=== PATIENT | male | born 1945 | race Caucasian/White ===

== ENCOUNTER → 2016-10-12 | Outpatient (CLI) | payer OTHER ==
[2015-11-08 15:05] VITALS: BP 199/95
--- NOTE | 2016-10-12 14:14 | CT ---
HISTORY: Syncope, collapse Study: CT head without contrast Comparison: November 08, 2015 Technique: Axial non contrast images with coronal and sagittal reformats. Dose reduction procedures were used with MA/kv adjusted for body size. Findings: The ventricles are normal in size shape and position. Slight decreased attenuation in the periventri cular white matter suggests small vessel vascular disease. Mild age-related cortical atrophy is pres ent. There is no evidence for recent or remote CVA, hemorrhage, mass lesion, or extra-axial fluid co llection. Those sinuses visualized were clear. Postsurgical changes are present in the left periorbi petty and axillary areas where the patient is undergone open reduction internal fixation of facial fra ctures. IMPRESSION: No acute intracranial abnormality Mild age-related cortical atrophy Mild small-vessel disease Reported By:
== END | disposition home or self-care (01) ==
LOC: RAD 13:33
PROVIDERS: ATTEND Internal Medicine
DX: R55 Syncope and collapse (principal); W19.XXXA Unspecified fall, initial encounter; G31.89 Other specified degenerative diseases of nervous system; I73.89 Other specified peripheral vascular diseases
CPT/HCPCS: 70450

== ENCOUNTER 2017-02-03 19:36 | Emergency (ER) | payer OTHER ==
--- NOTE | 2017-02-03 20:05 | CT ---
CT head without contrast Indication: Altered mental status Technique: Helical CT images of the brain were obtained without IV contrast. Reformatted images in th e coronal and sagittal planes were also generated for review. Comparison: 10/12/2016 Findings: There is no intracranial hemorrhage, visible acute infarct, focal or generalized edema, ext ra-axial collection, hydrocephalus or mass. There is stable age-appropriate cerebral atrophy with pro portional compensatory ventricular and sulcal enlargement. Mild periventricular and subcortical white matter microangiopathic disease also appears similar. Prior postsurgical changes of the left maxillo facial bones again noted and unchanged. No acute osseous or soft tissue abnormality is otherwise iden tified. Impression: No acute intracranial abnormality. Stable age-appropriate atrophy and microangiopathic disease. Reported By:
[2017-02-03 20:16] VITALS: BMI 29.2
--- NOTE | 2017-02-03 20:18 | DR.GENAD ---
HPI - Complaint/Symptoms Chief Complaint Doctors Comments: Patient presented to the ED with complaint of not responding (AMS) with presumed strok. He was taken X ray for stat CT Scan. The scan was read as negative. Communication make with Dr Rajan via the Stroke Portal who evaluated patient and he recommended TPA administration and transfer to [facility] ED for a ER to ER acceptance and he was the neurologist accepting patient. PMH - PMH Past Medical History: Anemia, Angina, Arthritis, CHF, Coronary Artery Disease, Depression, Diabetes, GERD, Hypertension, Kidney Stones, [place], Sleep Apnea Past Surgical History: Yes Surgical History: Angioplasty/Stents, CABG/Valve Surgery - Family History Family Medical History: Diabetes Mellitus, Cancer, [place], Sudden Cardiac , Hypertension - Social History Do you use any recreational Drugs:: No ROS - Review of Systems Constitutional: negative: Diaphoresis Eyes: Other (Not responding) ENTM: No Symptoms Reported Respiratoy: No Symptoms Reported Cardiovascular: No Symptoms Reported Gastrointestinal/Abdominal: No Symptoms Reported Genitourinary: No Symptoms Reported Neurological: No Symptoms Reported Musculoskeletal: No Symptoms Reported Integumentary: No Symptoms Reported Hematologic/Lymphatic: No Symptoms Reported Endocrine: No Symptoms Reported Psychiatric: No Symptoms Reported All Other Systems: Reviewed and Negative PE - Vital Signs Vitals: Temperature 97.5 F Pulse Rate 72 Respiratory Rate 20 Blood Pressure [Right Arm] 123/60 Blood Pressure [Left Arm] 137/60 Blood Pressure 175/81 O2 Sat by Pulse Oximetry 97 - General Limitations: Language Barrier, Altered Mental Status General Appearance: Obtunded - Head Head Exam: Normal Inspection, Atraumatic - Eyes Eye exam: Normal Appearance, Other (sluggish ) - ENT ENT Exam: Normal Exam External Ear Exam: Normal External Inspection TM/Canal Exam: Bilateral Normal Nose Exam: Normal Nose Exam Mouth Exam: Normal Inspection, Other (s/p facial surgery ) Throat Exam: Normal Inspection - Neck Neck Exam: Normal Inspection - Chest Chest Inspection: Normal Inspection - Respiratory Respiratory Exam: Normal Lung Sounds Bilat Respiratory Exam: Bilateral Clear to Auscultation - Cardiovascular Cardiovascular Exam: Regular Rate - Abdominal Exam Abdominal Exam: Normal Inspection Abdominal Tenderness: negative: RUQ, RLQ, LUQ, LLQ, Epigastrium, Suprapubic, Diffuse, Mild, Moderate, Severe, Other - Extremities Extremities Exam: Normal Inspection, Full ROM - Back Back Exam: Normal Inspection - Neurologic Neurological Exam: Alert, CN II-XII Intact - Psychiatric Psychiatric Exam: Normal Affect - Skin Skin Exam: Warm, Dry, Intact Course - Consultation Called: 20:30 (Dr Castillo evaluated, suspected CVA, recommended TPA) ROR - Labs Reviewed Result Diagrams: 02/03/17 20:25 02/03/17 20:25 Laboratory: WBC 10.3 X10^3/uL (3.6-10.0) H 02/03/17 20:25 RBC 4.00 X10^6/uL (4.7-6.0) L 02/03/17 20:25 Hgb 11.5 g/dL (13.5-18.0) L 02/03/17 20:25 Hct 34.9 % (42.0-54.0) L 02/03/17 20:25 MCV 87.4 fL (80.0-100.0) 02/03/17 20:25 MCH 28.8 pg (27.0-34.0) 02/03/17 20:25 MCHC 33.0 g/dL (33.0-35.0) 02/03/17 20:25 RDW 17.1 % (11.6-16.5) H 02/03/17 20:25 Plt Count 272 X10^3/uL (150.0-450.0) 02/03/17 20:25 MPV 8.0 fL (7.4-11.0) 02/03/17 20:25 Neut % 45.3 % (42.0-75.0) 02/03/17 20:25 Lymph % 40.1 % (21.0-51.0) 02/03/17 20:25 [place] % 9.9 % (0.0-13.0) 02/03/17 20:25 Eos % 4.0 % (0.9-2.9) H 02/03/17 20:25 Baso % 0.7 % (0.2-1.0) 02/03/17 20:25 Neut # 4.7 x10^3/uL (2.2-4.8) 02/03/17 20:25 Lymph # 4.1 X10^3/uL (1.3-2.9) H 02/03/17 20:25 [place] # 1.0 x10^3/uL (0.3-0.8) H 02/03/17 20:25 Eos # 0.4 x10^3/uL (0.0-0.2) H 02/03/17 20:25 Baso # 0.1 X10^3/uL (0.0-0.1) 02/03/17 20:25 Absolute Nucleated RBC 0.0 /100WBC 02/03/17 20:25 INR Target Range - 02/03/17 20:25 INR 1.04 (0.8-1.3) 02/03/17 20:25 PTT 35.0 SECONDS (22.9-36.5) 02/03/17 20:25 PTT Comment - 02/03/17 20:25 - XRAY XRAY Interpreted by: Radiologist (CT Brain: No acute intracranial abnormality) - Diagnosis Discharge Problem: CVA (cerebral vascular accident) Qualifiers: CVA mechanism: thrombosis Precerebral and cerebral artery: unspecified cerebral artery Qualified Code(s): I63.30 - Cerebral infarction due to thrombosis of unspecified cerebral artery - Discharge Plan Condition: Stable - Follow ups/Referrals Follow ups/Referrals: Trav Cordero [Primary Care Provider] - 3 days - Instructions
[2017-02-03 20:32] LABS: BASOPHILS # (AUTO) 0.1 X10^3/uL (0.0-0.1); BASOPHILS % (AUTO) 0.7 % (0.2-1.0); EOSINOPHILS # (AUTO) 0.4 x10^3/uL (0.0-0.2); HEMATOCRIT 34.9 % (42.0-54.0); HEMOGLOBIN 11.5 g/dL (13.5-18.0); LYMPHOCYTES # (AUTO) 4.1 X10^3/uL (1.3-2.9); LYMPHOCYTES % (AUTO) 40.1 % (21.0-51.0); MEAN CORPUSCULAR HEMOGLOBIN 28.8 pg (27.0-34.0); MEAN CORPUSCULAR VOLUME 87.4 fL (80.0-100.0); MONOCYTES % (AUTO) 9.9 % (0.0-13.0); NEUTROPHILS # (AUTO) 4.7 x10^3/uL (2.2-4.8); NEUTROPHILS % (AUTO) 45.3 % (42.0-75.0); PLATELET COUNT 272 X10^3/uL (150.0-450.0); RED CELL DISTRIBUTION WIDTH 17.1 % (11.6-16.5); WHITE BLOOD COUNT 10.3 X10^3/uL (3.6-10.0)
[2017-02-03 20:48] LABS: CALCIUM 8.6 mg/dL (8.5-10.1); CARBON DIOXIDE 29.3 mmol/L (21-32); CREATININE 1.97 mg/dL (0.70-1.30); TROPONIN I 0.39 ng/mL (0-1.5)
[2017-02-03] MEDS ORDERED: NS IV ONE ×2 (20:51→21:05)
[2017-02-03] MEDS ORDERED: ACTIVASE IV ONE ×2 (20:51→21:05)
[2017-02-03 20:52] LABS: ALBUMIN 3.1 g/dL (3.4-5.0); CKMB % 0.6 % (<4); COR CA(FOR HYPOALB) 9.3 mg/dL (8.5-10.1); CREATINE KINASE MB 1.6 ng/mL (0-4.0); MAGNESIUM 2.4 mg/dL (1.7-2.9); TOTAL PROTEIN 7.9 g/dL (6.4-8.2)
[2017-02-03] MEDS ORDERED: NORMODYNE INJ 20 MG VIAL ONE (21:13)
[2017-02-03] MEDS ORDERED: NORMODYNE INJ 100 MG VIAL IVP ONE (21:19)
[2017-02-03] MEDS ORDERED: NS 1/2 1000 ML IV 1,000 ML IV ONE (21:31)
[2017-02-03] MEDS ORDERED: NS 1/2 1000 ML IV 1,000 ML IV SCH (21:33)
[2017-02-03 21:37] LABS: BILIRUBIN,URINE NEGATIVE (NEGATIVE); BLOOD/HEMOGLOBIN,URINE 1+ (NEGATIVE); GLUCOSE, URINE 4+ (NEGATIVE); KETONES,URINE NEGATIVE (NEGATIVE); LEUKOCYTE ESTERASE ,URINE NEGATIVE (NEGATIVE); NITRITES,URINE NEGATIVE (NEGATIVE); PROTEIN,URINE 1+ (NEGATIVE); UROBILINOGEN,URINE NORMAL (NORMAL)
[2017-02-03 21:46] LABS: AMORPHOUS SEDIMENT,UR 1+ /HPF (NEGATIVE); APPEARANCE,URINE CLEAR (CLEAR); BACTERIA,URINE TRACE /HPF (NEGATIVE); COLOR,URINE PALE YELLOW (YELLOW); RBC,URINE 0-2 /HPF (NEGATIVE); SQUAMOUS EPITHELIAL CELL,UR NEGATIVE /HPF (NEGATIVE)
--- NOTE | 2017-02-03 21:46 | RAD ---
Chest, one view Indication: Altered mental status Comparison: 10/02/2015 Findings: There is stable mild cardiomegaly without congestive failure. Left-sided pacemaker and prio r median sternotomy again noted. No focal consolidation, significant effusion or pneumothorax is iden tified. Postsurgical changes of the distal left clavicle are noted. No acute osseous abnormality is i dentified. Impression: No acute cardiopulmonary abnormality. Reported By:
[2017-02-04 02:00] VITALS: BP 142/77
== END 2017-02-03 21:45 | disposition short-term general hospital (02) ==
LOC: ER 19:47
DX: I63.30 Cerebral infarction due to thrombosis of unspecified cerebral artery (principal); R41.82 Altered mental status, unspecified
CPT/HCPCS: 36415; 51702; 70450; 71010; 80053; 80307; 81001; 82550; 82553; 83735; 84484; 85025; 85610; 85730; 93005; 96365; 96367; 96374; 96375; 99285; A4222; G0434; J2997; J3490

== ENCOUNTER → 2017-03-11 | Day surgery (SDC) | payer OTHER ==
[~2017-03-11] MED LIST: ANCEF 1 GM IV PREMIX* 1 GM/50 ML BAG IV ONE; DIPRIVAN VIAL ONE; LR 1000 ML IV 1,000 ML IV ONE; NS 1000 ML 1,000 ML ONE; NS IRRIGATION 1000 ML 1,000 ML with BACITRACIN VIAL 50,000 UNT IR ONE; VERSED ONE; XYLOCAINE 1 % (PLAIN) ONE
[2017-03-11] MEDS: FLAGYL IV PREMIX 500 MG BAG 500 MG/100 ML BAG IV ONE ×2 (08:30→09:15)
[2017-03-11] MEDS: XYLOCAINE 1 % (PLAIN) ONE ×2 (09:40→09:51)
[2017-03-11 11:00] VITALS: BP 139/76
== END | disposition home or self-care (01) ==
LOC: SURG1 07:38
PROVIDERS: ATTEND Surgery
PROC: 0JBQ0ZZ Excision of Right Foot Subcutaneous Tissue and Fascia, Open Approach (ICD-10-PCS; 2017-03-11)
PROC: 0JBR0ZZ Excision of Left Foot Subcutaneous Tissue and Fascia, Open Approach (ICD-10-PCS; principal; 2017-03-11 08:30)
DX: E11.621 Type 2 diabetes mellitus with foot ulcer (principal); L97.528 Non-pressure chronic ulcer of other part of left foot with other specified severity; L97.518 Non-pressure chronic ulcer of other part of right foot with other specified severity; Z89.422 Acquired absence of other left toe(s); Z89.421 Acquired absence of other right toe(s); B95.7 Other staphylococcus as the cause of diseases classified elsewhere; M79.89 Other specified soft tissue disorders
CPT/HCPCS: 87070; 87075; 87077; 87186; 87205; 99100; A4222; S0030; J0690; J2001; J2250; J3490; J7120

== ENCOUNTER → 2017-04-04 | Day surgery (SDC) | payer OTHER ==
[~2017-04-04] MED LIST changes: -ANCEF 1 GM IV PREMIX* 1 GM/50 ML BAG IV ONE; +BACITRACIN VIAL ONE; +BACTROBAN OINT ONE; -DIPRIVAN VIAL ONE; +FENTANYL INJ 100 mcg ONE; -LR 1000 ML IV 1,000 ML IV ONE; +MARCAINE 0.25% INJ ONE; +NS IRRIGATION 1000 ML 1,000 ML with BACITRACIN VIAL 50,000 UNT IM ONE; -NS IRRIGATION 1000 ML 1,000 ML with BACITRACIN VIAL 50,000 UNT IR ONE; -VERSED ONE; -XYLOCAINE 1 % (PLAIN) ONE
[2017-04-04 10:43] VITALS: BP 108/80
== END | disposition home or self-care (01) ==
LOC: SURG1 08:43
PROVIDERS: ATTEND Surgery
PROC: 0JBQ0ZZ Excision of Right Foot Subcutaneous Tissue and Fascia, Open Approach (ICD-10-PCS; 2017-04-04)
PROC: 0JBQ0ZZ Excision of Right Foot Subcutaneous Tissue and Fascia, Open Approach (ICD-10-PCS; principal; 2017-04-04 09:00)
DX: E11.621 Type 2 diabetes mellitus with foot ulcer (principal); L97.516 Non-pressure chronic ulcer of other part of right foot with bone involvement without evidence of necrosis; L89.619 Pressure ulcer of right heel, unspecified stage; B95.62 Methicillin resistant Staphylococcus aureus infection as the cause of diseases classified elsewhere
CPT/HCPCS: 87070; 87075; 87077; 87186; 87205; 99100; A4222; S0020; J3010

== ENCOUNTER 2017-04-08 14:55 | Inpatient (IN) | payer OTHER ==
--- NOTE | 2017-04-08 15:28 | DR.CP ---
HPI - Time Seen Time seen: 15:20 - PCP Primary Care Physician: FREDDY MARINO - Complaint Chief Complaint Doctor Comments: Patient presented to the ED with family members with complaint of respiratory distress with increased in oxygen requirement. There is concern that patient might be having another CVA. Chief Complaint:: PT FROM [facility] WHERE STAFF STATES THAT HE C/O CHEST PAIN, AND PT HAS HAD STROKES PT IS UNABLE TO ARTICULATE ANY PAIN PT PLACED ON 3 CM ,,, SR RATE OF 70'S NOTED PT HAS 02 ON AT 2 LPM , PT IS PALE SINCE YESTERDAY PER FAMILY. - Source History Provided: Patient - Mode of Arrival Mode of Arrival: Stretcher - Timing Onset of Chief Complaint: 04/08/17 PMH - PMH Past Medical History: Yes Past Medical History: Anemia, Angina, Arthritis, CHF, Coronary Artery Disease, Depression, Diabetes, GERD, Hypertension, Kidney Stones, [place], Sleep Apnea Past Surgical History: Yes Surgical History: Angioplasty/Stents, CABG/Valve Surgery - Family History History of Family Medical Conditions: Yes Family Medical History: Diabetes Mellitus, Cancer, [place], Sudden Cardiac , Hypertension - Social History Does patient currently use any type of tobacco product: No Have you used tobacco products in the last 12 months: No Type of Tobacco Use: None Does any household member use tobacco: No Alcohol Use: None Do you use any recreational Drugs:: No Lives With: Family Lives Where: Home - infectious screening In the last 2 months have you had wt loss of >10#?: NO Have you had fever, night sweats or hemotysis?: No Have you traveled outside the country in the last 6 months?: No Isolation: Standard ROS - Review of Systems Eyes: No Symptoms Reported ENTM: No Symptoms Reported Respiratoy: No Symptoms Reported Cardiovascular: No Symptoms Reported Gastrointestinal/Abdominal: No Symptoms Reported Genitourinary: No Symptoms Reported Neurological: No Symptoms Reported Musculoskeletal: No Symptoms Reported Integumentary: No Symptoms Reported Hematologic/Lymphatic: No Symptoms Reported Endocrine: No Symptoms Reported Psychiatric: No Symptoms Reported All Other Systems: Reviewed and Negative PE - Vitals Vitals: Temperature 96.2 F Pulse Rate 88 Respiratory Rate 20 Blood Pressure [Right Arm] 123/60 Blood Pressure [Left Arm] 142/77 Blood Pressure 116/73 O2 Sat by Pulse Oximetry 100 - General General Appearance: In No Apparent Distress - Head Head Exam: Normal Inspection, Atraumatic - Eyes Eye exam: Normal Appearance, PERRL, EOMI - ENT ENT Exam: Normal Exam - Chest Chest Inspection: Normal Inspection - Respiratory Respiratory Exam: Normal Lung Sounds Bilat. negative: Accessory Muscle Use Respiratory Exam: Bilateral Clear to Auscultation - Cardiovascular Cardiovascular Exam: Tachycardia Pulse: Weak Edema: Normal - Abdominal Exam Abdominal Exam: Normal Inspection Abdominal Tenderness: negative: RUQ, RLQ, LUQ, LLQ, Epigastrium, Suprapubic, Diffuse, Mild, Moderate, Severe, Other - Extremities Extremities Exam: Normal Inspection - Back Back Exam: Normal Inspection - Neurologic Neurological Exam: Alert, CN II-XII Intact - Psychiatric Psychiatric Exam: Depressed, Flat Affect - Skin Skin Exam: Warm, Dry Course - Consultation Called: 16:25 (Dr Cordero agreed to admit with recommendations) ROR - Labs Reviewed Result Diagrams: 04/08/17 15:31 04/08/17 15:31 - XRAY XRAY Interpreted by: Radiologist (Chest: AP portable examination of chest is compared to a study 03/10/2017. Heart is enlarged as before. Sternal metallic sutures in the left sided permanent cardiac pacemaker are again identified. There is confluent density at the right lung base obscuring the right heart border with patchy density in the right lateral costophrenic angle and left lung base medially. Impression: Asymmetric pulmonary edema vs bilateral pneumonia) - Diagnosis Discharge Problem: Bilateral pneumonia Qualifiers: Pneumonia type: due to unspecified organism Lung location: unspecified part of lung Qualified Code(s): J18.9 - Pneumonia, unspecified organism - Discharge Plan Disposition: ADMITTED INPATIENT Condition: Stable - Follow ups/Referrals - Instructions
--- NOTE | 2017-04-08 15:37 | RAD ---
History: Chest pain, weakness Study: Chest single view Findings: AP portable examination of chest is compared to a study 03/10/2017. Heart is enlarged as be fore. Sternal metallic sutures in the left-sided permanent cardiac pacemaker are again identified. Th ere is confluent density at the right lung base obscuring the right heart border with patchy density in the right lateral costophrenic angle and left lung base medially Impression: . Asymmetric pulmonary edema versus bilateral pneumonia. Reported By:
[2017-04-08 15:42] LABS: BASOPHILS # (AUTO) 0.1 X10^3/uL (0.0-0.1); BASOPHILS % (AUTO) 0.5 % (0.2-1.0); EOSINOPHILS # (AUTO) 0.5 x10^3/uL (0.0-0.2); EOSINOPHILS % (AUTO) 3.6 % (0.9-2.9); HEMATOCRIT 29.8 % (42.0-54.0); HEMOGLOBIN 9.5 g/dL (13.5-18.0); LYMPHOCYTES % (AUTO) 14.6 % (21.0-51.0); MEAN CORPUSCULAR HEMOGLOBIN 26.9 pg (27.0-34.0); MEAN CORPUSCULAR HGB CONC 31.8 g/dL (33.0-35.0); MEAN CORPUSCULAR VOLUME 84.6 fL (80.0-100.0); MEAN PLATELET VOLUME 8.4 fL (7.4-11.0); MONOCYTES # (AUTO) 0.9 x10^3/uL (0.3-0.8); MONOCYTES % (AUTO) 6.5 % (0.0-13.0); NEUTROPHILS # (AUTO) 10.3 x10^3/uL (2.2-4.8); NEUTROPHILS % (AUTO) 74.8 % (42.0-75.0); PLATELET COUNT 287 X10^3/uL (150.0-450.0); RED BLOOD COUNT 3.52 X10^6/uL (4.7-6.0); WHITE BLOOD COUNT 13.8 X10^3/uL (3.6-10.0)
--- NOTE | 2017-04-08 15:52 | CT ---
HISTORY: Decreased sensorium, prior CVA Study: CT brain without contrast Comparison: 02/03/2017. Technique: Multiple axial images of the brain were obtained from the skull base to the vertex without administra tion of IV contrast. Coronal and sagittal images are also reviewed. Dose reduction techniques utilize d automatic exposure control. Findings: No acute intraparenchymal hemorrhage or mass can be identified. No extra-axial fluid collections are seen. No alteration in the attenuation of the brain parenchyma can be identified to suggest acute o r subacute ischemic change. The ventricular system is symmetric and nondilated. There is chronic pe riventricular white matter disease observed and age-appropriate generalized atrophy. IMPRESSION: 1. No acute intracranial process can be identified. 2. Chronic periventricular white matter disease likely on the basis of small vessel ischemic change. 3. Age-appropriate atrophic changes are seen. Reported By:
[2017-04-08 15:56] LABS: CALCIUM 8.6 mg/dL (8.5-10.1); CARBON DIOXIDE 23.7 mmol/L (21-32); CREATININE 1.95 mg/dL (0.70-1.30); TROPONIN I 0.2 ng/mL (0-1.5)
[2017-04-08 15:59] LABS: CKMB % 1.3 % (<4); COR CA(FOR HYPOALB) 10.2 mg/dL (8.5-10.1); CREATINE KINASE MB 1.6 ng/mL (0-4.0); MAGNESIUM 2.6 mg/dL (1.7-2.9); TOTAL PROTEIN 8.1 g/dL (6.4-8.2)
[2017-04-08] MEDS ORDERED: LEVAQUIN PREMIX IV 750 MG 750 MG/150 ML BAG IV ONE ×2 (16:57→16:59)
[2017-04-08] MEDS: NS 1000 ML 1,000 ML IV SCH (16:58)
[2017-04-08] MEDS ORDERED: DUONEB 0.5 MG/3 MG NEB SCH (17:45)
[2017-04-08] MEDS ORDERED: TUSSIONEX PENNKINETIC SUSP PO PRN (17:53)
[2017-04-08] MEDS: NS 1/2 1000 ML IV 1,000 ML IV SCH ×2 (18:39→21:24)
[2017-04-08] MEDS ORDERED: SALINE 3% 15 ML NEB TX NEB ONE (21:00)
[2017-04-08] MEDS ORDERED: NS 1/2 1000 ML IV 1,000 ML IV ONE (21:01)
[2017-04-08] MEDS: ROBITUSSIN DM PO SCH (21:24)
[2017-04-08] MEDS: FORTAZ or TAZICEF INJ 2 GM in NS 100 ML IV + SPIKE MINIBAG* 100 ML IV SCH (21:25)
[2017-04-08] MEDS ORDERED: SALINE 3% 15 ML NEB TX ONE (21:30)
[2017-04-08] MEDS: DUONEB 0.5 MG/3 MG NEB SCH (21:41)
[2017-04-09] MEDS: DUONEB 0.5 MG/3 MG NEB SCH ×6 (00:21→20:41)
[2017-04-09] MEDS: NS 1000 ML 1,000 ML IV SCH ×3 (01:50→18:59)
[2017-04-09] MEDS: FORTAZ or TAZICEF INJ 2 GM in NS 100 ML IV + SPIKE MINIBAG* 100 ML IV SCH ×3 (05:13→21:01)
[2017-04-09 05:39] LABS: BASOPHILS # (AUTO) 0.1 X10^3/uL (0.0-0.1); BASOPHILS % (AUTO) 0.6 % (0.2-1.0); EOSINOPHILS # (AUTO) 0.3 x10^3/uL (0.0-0.2); EOSINOPHILS % (AUTO) 2.2 % (0.9-2.9); HEMATOCRIT 25.4 % (42.0-54.0); HEMOGLOBIN 8.3 g/dL (13.5-18.0); LYMPHOCYTES % (AUTO) 16.1 % (21.0-51.0); MEAN CORPUSCULAR HEMOGLOBIN 27.4 pg (27.0-34.0); MEAN CORPUSCULAR HGB CONC 32.5 g/dL (33.0-35.0); MEAN CORPUSCULAR VOLUME 84.1 fL (80.0-100.0); MONOCYTES # (AUTO) 1.1 x10^3/uL (0.3-0.8); MONOCYTES % (AUTO) 8.5 % (0.0-13.0); NEUTROPHILS % (AUTO) 72.6 % (42.0-75.0); PLATELET COUNT 234 X10^3/uL (150.0-450.0); RED BLOOD COUNT 3.02 X10^6/uL (4.7-6.0); RED CELL DISTRIBUTION WIDTH 19.2 % (11.6-16.5); WHITE BLOOD COUNT 12.4 X10^3/uL (3.6-10.0)
[2017-04-09 05:51] LABS: ALANINE AMINOTRANSFERASE 497 Units/L (12-78); ALBUMIN 1.8 g/dL (3.4-5.0); ALKALINE PHOSPHATASE 268 Units/L (46-116); ASPARTATE AMINO TRANSFERASE 832 Units/L (15-37); BLOOD UREA NITROGEN 41 mg/dL (7-18); CALCIUM 8.2 mg/dL (8.5-10.1); CARBON DIOXIDE 23.5 mmol/L (21-32); CHLORIDE 109 mmol/L (98-107); CHOL/HDL RATIO 3.7 (0.0-5.0); CHOLESTEROL 78 mg/dL (0-200); CREATININE 1.85 mg/dL (0.70-1.30); HDL CHOLESTEROL 21 mg/dL (40-60); SODIUM 142 mmol/L (136-145); TOTAL PROTEIN 7.2 g/dL (6.4-8.2); TRIGLYCERIDES 32 mg/dL (0-150); eGFR BLACK RACES 46 (>60); eGFR NON BLACK RACES 38 (>60)
[2017-04-09] MEDS ORDERED: HYDROGEN PEROXIDE 3% ONE (09:56)
[2017-04-09] MEDS ORDERED: STERILE WATER IRRIGATION IR ONE (09:59)
[2017-04-09] MEDS: NS 1/2 1000 ML IV 1,000 ML IV SCH ×3 (10:04→21:54)
[2017-04-09] MEDS: ROBITUSSIN DM PO SCH ×4 (10:04→21:09)
[2017-04-09] MEDS: REQUIP PO SCH ×2 (11:03→21:01)
[2017-04-09 11:14] LABS: IRON 50 ug/dL (50-175); TRANSFERRIN 120 mg/dL (202-364)
[2017-04-09] MEDS ORDERED: NS 1/2 1000 ML IV 1,000 ML IV ONE ×2 (12:28→19:51)
--- NOTE | 2017-04-09 17:35 | RAD ---
Examination: AP chest History: Pneumonia Comparison reference 04/08/2017 Findings: Stable cardiomegaly with pacemaker. Persistent density at the right base consistent with ai rspace disease in the right lower lung. No large pleural effusion or pneumothorax seen. Impression: Stable cardiomegaly with postsurgical findings. Density right base may represent pneumoni a. Standard chest projections recommended on follow-up, to exclude noninflammatory etiology. Reported By:
[2017-04-10] MEDS: DUONEB 0.5 MG/3 MG NEB SCH ×7 (01:15→20:27)
[2017-04-10 05:24] LABS: BASOPHILS % (AUTO) 0.3 % (0.2-1.0); EOSINOPHILS # (AUTO) 0.3 x10^3/uL (0.0-0.2); EOSINOPHILS % (AUTO) 2.1 % (0.9-2.9); HEMATOCRIT 27.3 % (42.0-54.0); HEMOGLOBIN 8.6 g/dL (13.5-18.0); LYMPHOCYTES # (AUTO) 1.6 X10^3/uL (1.3-2.9); LYMPHOCYTES % (AUTO) 12.9 % (21.0-51.0); MEAN CORPUSCULAR HGB CONC 31.4 g/dL (33.0-35.0); MEAN PLATELET VOLUME 9.5 fL (7.4-11.0); MONOCYTES # (AUTO) 1.1 x10^3/uL (0.3-0.8); MONOCYTES % (AUTO) 8.5 % (0.0-13.0); NEUTROPHILS # (AUTO) 9.5 x10^3/uL (2.2-4.8); NEUTROPHILS % (AUTO) 76.2 % (42.0-75.0); PLATELET COUNT 183 X10^3/uL (150.0-450.0); RED BLOOD COUNT 3.18 X10^6/uL (4.7-6.0); RED CELL DISTRIBUTION WIDTH 19.1 % (11.6-16.5); WHITE BLOOD COUNT 12.5 X10^3/uL (3.6-10.0)
[2017-04-10] MEDS: FORTAZ or TAZICEF INJ 2 GM in NS 100 ML IV + SPIKE MINIBAG* 100 ML IV SCH ×3 (05:27→21:05)
[2017-04-10 05:43] LABS: ALBUMIN 1.7 g/dL (3.4-5.0); CALCIUM 8.2 mg/dL (8.5-10.1); CARBON DIOXIDE 19.4 mmol/L (21-32); CREATININE 2.14 mg/dL (0.70-1.30); TOTAL PROTEIN 7.3 g/dL (6.4-8.2)
[2017-04-10] MEDS: HumuLIN R SC PRN ×2 (06:10→16:36)
[2017-04-10] MEDS: ROBITUSSIN DM PO SCH ×5 (08:21→22:10)
[2017-04-10] MEDS ORDERED: PROCRIT or EPOGEN SC NR (08:21)
[2017-04-10] MEDS ORDERED: STERILE WATER IRRIGATION IR ONE (09:39)
--- NOTE | 2017-04-10 10:13 | PCM.PROG ---
Progress Note - Progress Note for Day of Date: 04/10/17 - Subjective Subjective: moderate pain Rt foot with mild drainage. BS is controlled , had low level yesterday. able to ambulate with assistance . - Past Medical Family Social History Allergies: Allergies Iodine and Iodide Containing Produc Allergy (Mild, Verified 04/08/17 16:48) strawberry Allergy (Mild, Verified 04/08/17 16:48) gatifloxacin Allergy (Verified 04/08/17 16:48) shellfish derived Allergy (Verified 04/08/17 16:48) - Vital Signs and I&O's Vital Signs: Temperature 97.3 F Pulse Rate [Left Brachial] 99 Pulse Rate 97 Respiratory Rate 20 Blood Pressure [Right Arm] 104/56 Blood Pressure [Left Arm] 108/69 Blood Pressure 116/73 O2 Sat by Pulse Oximetry 99 Intake and Output: Intake & Output 04/07/17 04/08/17 04/09/17 04/10/17 11:59 11:59 11:59 11:59 Intake Total 2071 2765 Output Total 200 Balance 2071 2565 - Physical Exam Musculoskeletal: Right (diabetic ulcer Rt foot is the same with open open wound 2 x 2 cm with necrotic material in the depth of the incision ) Speech Pattern: Delayed - Laboratory and Diagnostics Result Diagrams: 04/10/17 04:05 04/10/17 04:05 Labs: 04/08/17 16:24 Blood Blood Culture - Preliminary Laboratory WBC 12.5 X10^3/uL (3.6-10.0) H 04/10/17 04:05 RBC 3.18 X10^6/uL (4.7-6.0) L 04/10/17 04:05 Hgb 8.6 g/dL (13.5-18.0) L 04/10/17 04:05 Hct 27.3 % (42.0-54.0) L 04/10/17 04:05 MCV 86.0 fL (80.0-100.0) 04/10/17 04:05 MCH 27.0 pg (27.0-34.0) 04/10/17 04:05 MCHC 31.4 g/dL (33.0-35.0) L 04/10/17 04:05 RDW 19.1 % (11.6-16.5) H 04/10/17 04:05 Plt Count 183 X10^3/uL (150.0-450.0) 04/10/17 04:05 MPV 9.5 fL (7.4-11.0) 04/10/17 04:05 Neut % 76.2 % (42.0-75.0) H 04/10/17 04:05 Lymph % 12.9 % (21.0-51.0) L 04/10/17 04:05 [place] % 8.5 % (0.0-13.0) 04/10/17 04:05 Eos % 2.1 % (0.9-2.9) 04/10/17 04:05 Baso % 0.3 % (0.2-1.0) 04/10/17 04:05 Neut # 9.5 x10^3/uL (2.2-4.8) H 04/10/17 04:05 Lymph # 1.6 X10^3/uL (1.3-2.9) 04/10/17 04:05 [place] # 1.1 x10^3/uL (0.3-0.8) H 04/10/17 04:05 Eos # 0.3 x10^3/uL (0.0-0.2) H 04/10/17 04:05 Baso # 0.0 X10^3/uL (0.0-0.1) 04/10/17 04:05 Absolute Nucleated RBC 0.5 /100WBC 04/10/17 04:05 INR Target Range - 04/08/17 15:31 INR 2.72 (0.8-1.3) H 04/08/17 15:31 PTT 53.2 SECONDS (22.9-36.5) H 04/08/17 15:31 PTT Comment - 04/08/17 15:31 Sodium 140 mmol/L (136-145) 04/10/17 04:05 Corrected Sodium 143 mmol/L (136-145) 04/10/17 04:05 Potassium 5.1 mmol/L (3.5-5.1) 04/10/17 04:05 Chloride 106 mmol/L (98-107) 04/10/17 04:05 Carbon Dioxide 19.4 mmol/L (21-32) L 04/10/17 04:05 BUN 44 mg/dL (7-18) H 04/10/17 04:05 Creatinine 2.14 mg/dL (0.70-1.30) H 04/10/17 04:05 Est GFR (MDRD) Af Amer 39 (>60) L 04/10/17 04:05 Est GFR (MDRD) Non-Af 32 (>60) L 04/10/17 04:05 Glucose 208 mg/dL (65-99) H 04/10/17 04:05 POC Glucose (mg/dL) 217 mg/dL (65-99) H 04/10/17 05:53 Calcium 8.2 mg/dL (8.5-10.1) L 04/10/17 04:05 Corrected Calcium 10.0 mg/dL (8.5-10.1) 04/10/17 04:05 Magnesium 2.6 mg/dL (1.7-2.9) 04/08/17 15:31 Iron 50 ug/dL (50-175) 04/09/17 04:25 Transferrin 120 mg/dL (202-364) L 04/09/17 04:25 Ferritin 1754 ng/mL (26-388) H 04/09/17 04:25 Total Bilirubin 0.90 mg/dL (0.2-1.0) 04/10/17 04:05 AST 1336 Units/L (15-37) H 04/10/17 04:05 ALT 831 Units/L (12-78) H 04/10/17 04:05 Alkaline Phosphatase 340 Units/L (46-116) H 04/10/17 04:05 Creatine Kinase 123 Units/L (39-308) 04/08/17 15:31 CK-MB (CK-2) 1.6 ng/mL (0-4.0) 04/08/17 15:31 CK/CKMB % Calc 1.3 % (<4) 04/08/17 15:31 Troponin I 0.20 ng/mL (0-1.5) 04/08/17 15:31 Total Protein 7.3 g/dL (6.4-8.2) 04/10/17 04:05 Albumin 1.7 g/dL (3.4-5.0) L 04/10/17 04:05 Globulin 5.6 g/dL (2.5-4.5) H 04/10/17 04:05 Albumin/Globulin Ratio 0.3 Ratio (1.1-2.1) L 04/10/17 04:05 Triglycerides 32 mg/dL (0-150) 04/09/17 04:25 Cholesterol 78 mg/dL (0-200) 04/09/17 04:25 LDL Cholesterol, Calc 51 mg/dL (0-100) 04/09/17 04:25 HDL Cholesterol 21 mg/dL (40-60) L 04/09/17 04:25 Cholesterol/HDL Ratio 3.7 (0.0-5.0) 04/09/17 04:25 Vitamin B12 > 2000 pg/mL (193-986) H 04/09/17 04:25 Folate 20.0 ng/mL (>8.6) 04/09/17 04:25 - Plan (1) Diabetic foot ulcer associated with type 2 diabetes mellitus Status: Acute Plan: irrigate , clean and debride the Rt foot ulcer at bed side . same ATB and diabetic control.
[2017-04-10] MEDS: NS 1/2 1000 ML IV 1,000 ML IV SCH (12:03)
[2017-04-10] MEDS ORDERED: NS 1/2 1000 ML IV 1,000 ML IV ONE (19:57)
[2017-04-10] MEDS: REQUIP PO SCH (20:47)
[2017-04-10] MEDS: PEPCID 20 MG IV PREMIX* 20 MG/50 ML BAG IV SCH (21:56)
[2017-04-11] MEDS ORDERED: ULTRAM PO PRN (00:37)
[2017-04-11] MEDS: DUONEB 0.5 MG/3 MG NEB SCH ×6 (00:41→20:10)
[2017-04-11] MEDS: NS 1/2 1000 ML IV 1,000 ML IV SCH ×2 (02:12→17:03)
[2017-04-11 05:30] LABS: BASOPHILS # (AUTO) 0.1 X10^3/uL (0.0-0.1); BASOPHILS % (AUTO) 0.7 % (0.2-1.0); EOSINOPHILS # (AUTO) 0.4 x10^3/uL (0.0-0.2); EOSINOPHILS % (AUTO) 3.7 % (0.9-2.9); HEMATOCRIT 25.8 % (42.0-54.0); HEMOGLOBIN 8.4 g/dL (13.5-18.0); LYMPHOCYTES # (AUTO) 1.6 X10^3/uL (1.3-2.9); LYMPHOCYTES % (AUTO) 15.6 % (21.0-51.0); MEAN CORPUSCULAR HEMOGLOBIN 27.6 pg (27.0-34.0); MEAN CORPUSCULAR HGB CONC 32.7 g/dL (33.0-35.0); MEAN CORPUSCULAR VOLUME 84.5 fL (80.0-100.0); MEAN PLATELET VOLUME 9.8 fL (7.4-11.0); MONOCYTES # (AUTO) 1.2 x10^3/uL (0.3-0.8); MONOCYTES % (AUTO) 11.2 % (0.0-13.0); NEUTROPHILS # (AUTO) 7.1 x10^3/uL (2.2-4.8); NEUTROPHILS % (AUTO) 68.8 % (42.0-75.0); PLATELET COUNT 127 X10^3/uL (150.0-450.0); RED BLOOD COUNT 3.05 X10^6/uL (4.7-6.0); RED CELL DISTRIBUTION WIDTH 19.8 % (11.6-16.5); WHITE BLOOD COUNT 10.3 X10^3/uL (3.6-10.0)
[2017-04-11] MEDS: FORTAZ or TAZICEF INJ 2 GM in NS 100 ML IV + SPIKE MINIBAG* 100 ML IV SCH ×3 (05:34→21:14)
[2017-04-11 05:44] LABS: ALBUMIN 1.6 g/dL (3.4-5.0); CARBON DIOXIDE 20.6 mmol/L (21-32); COR CA(FOR HYPOALB) 9.9 mg/dL (8.5-10.1); CREATININE 1.99 mg/dL (0.70-1.30)
[2017-04-11] MEDS: ALBUMIN HUMAN 25%- 100ML 200 ML IV SCH (09:14)
[2017-04-11] MEDS: PEPCID 20 MG IV PREMIX* 20 MG/50 ML BAG IV SCH ×2 (09:15→20:39)
[2017-04-11] MEDS: ROBITUSSIN DM PO SCH ×4 (09:15→20:42)
--- NOTE | 2017-04-11 09:22 | RAD ---
HISTORY: Decreased sensorium Study: Single-view of chest Comparison: April 09, 2017 Findings: The patient is rotated. The cardiac silhouette is enlarged. Low lung volumes are demonstrated bilate rally resulting in crowding of normal structures. The previously noted density within the right lung base suggesting infiltrate has not significantly changed. Retrocardiac left lower lobe infiltrate is also suspected. A left-sided cardiac pacemaker is demonstrated. Postoperative changes of midline ster notomy are noted. urgical clips project over the right upper quadrant of the abdomen. IMPRESSION: 1. Cardiomegaly. 2. Bibasilar airspace disease as noted above. Reported By:
--- NOTE | 2017-04-11 10:58 | PCM.PROG ---
Progress Note - Progress Note for Day of Date: 04/11/17 - Subjective Subjective: IS BEING TREATED FOR BILATERAL PNEUMONIA. TODAY, HE IS LYING IN BED WITH EYES CLOSED. WE AWAKENS AND RESPONDS TO VERBAL STIMULI, ALTHOUGH, QUICKLY FALLS BACK TO SLEEP. PATIENTS IS AT BEDSIDE AND REPORTS THAT PATIENT WAS VERY RESTLESS THROUGHOUT THE NIGHT. ON EXAMINATION, HEART IS REGULAR IN RATE AND RHYTHM. BILATERAL LUNGS ARE NOTED WITH SCATTERED WHEEZING AND RHONCHI THROUGHOUT. ABDOMEN IS ROUND, SOFT, AND NON-TENDER WITH NORMAL BOWEL SOUNDS NOTED IN ALL QUADRANTS. WEAKNESS NOTED TO ALL EXTREMITIES. MULTIPLE DIABETIC ULCERS WITH NO DRAINAGE NOTED TO BILATERAL FEET. HAS BEEN CONSULTED TO ASSESS AND MONITOR WOUNDS. WOUND CARE WILL BE PER HIS ORDERS. HIS VITALS THIS MORNING ARE 96.1-106-20-98%-112/65. LABS WERE OBTAINED. ABNORMAL LAB VALUES INCLUDE THE FOLLOWING: WBC DECREASED FROM 12.5 TO 10.5, RBC 3.05, HGB 8.4, HCT 25.8, PLT COUNT 127, INR 2.93, PTT 59.6, CARBON DIOXIDE 20.6 , BUN 47, CREATININE 1.99, GLUCOSE 206, CALCIUM 8.0, AST 1382, ALT 986, ALK PHOS 355, ALBUMIN 1.6. TODAYS CHEST XRAY REPORTS CARDIOMEGALY, UNCHANGED RIGHT LUNG BASE INFILTRATE. LEFT LOWER LOBE INFILTRATE ALSO SUSPECTED. TODAY, WE WILL INCREASE IV FLUIDS TO 100ML/HR. WE WILL ALSO START ALBUMIN 25GM, 2 BAGS DAILY. OTHERWISE, WE WILL CONTINUE WITH IV ANTIBIOTICS AND RESPIRATORY TREATMENTS. WE WILL FOLLOW UP WITH AM LABS AND CONTINUE TO MONITOR PATIENT. - Past Medical Family Social History Past Med/Fam/Surg Hx: No changes since H&P Allergies: Allergies Iodine and Iodide Containing Produc Allergy (Mild, Verified 04/08/17 16:48) strawberry Allergy (Mild, Verified 04/08/17 16:48) gatifloxacin Allergy (Verified 04/08/17 16:48) shellfish derived Allergy (Verified 04/08/17 16:48) - Review of Systems ROS: No change since H&P - Vital Signs and I&O's Vital Signs: Temperature 96.1 F Pulse Rate [Left Brachial] 106 Pulse Rate 90 Respiratory Rate 20 Blood Pressure [Right Arm] 112/65 Blood Pressure [Left Arm] 115/69 Blood Pressure 116/73 O2 Sat by Pulse Oximetry 98 Intake and Output: Intake & Output 04/08/17 04/09/17 04/10/17 04/11/17 11:59 11:59 11:59 11:59 Intake Total 2071 2765 2195 Output Total 200 400 Balance 1 2565 1795 - Physical Exam Oriented: Person Eyes: Normal Ear: Normal Nose: Normal Throat: Normal Respiratory: Generalized, Wheezes, Rhonchi Cardiovascular: Normal. negative: S3, S4, Murmur : Normal Auscultation: Bowel Sounds: Normal Palpation: Normal Tenderness: Normal Skin: Wound (DIABETIC ULCERS TO BILATERAL FEET ) Musculoskeletal: Right (diabetic ulcer Rt foot is the same with open open wound 2 x 2 cm with necrotic material in the depth of the incision ) Psychiatric: Normal Mood Description: Calm Affect: Normal Speech Pattern: Delayed - Laboratory and Diagnostics Result Diagrams: 04/11/17 04:10 04/11/17 04:10 Labs: 04/08/17 16:24 Blood Blood Culture - Preliminary Laboratory WBC 10.3 X10^3/uL (3.6-10.0) H 04/11/17 04:10 RBC 3.05 X10^6/uL (4.7-6.0) L 04/11/17 04:10 Hgb 8.4 g/dL (13.5-18.0) L 04/11/17 04:10 Hct 25.8 % (42.0-54.0) L 04/11/17 04:10 MCV 84.5 fL (80.0-100.0) 04/11/17 04:10 MCH 27.6 pg (27.0-34.0) 04/11/17 04:10 MCHC 32.7 g/dL (33.0-35.0) L 04/11/17 04:10 RDW 19.8 % (11.6-16.5) H 04/11/17 04:10 Plt Count 127 X10^3/uL (150.0-450.0) L 04/11/17 04:10 MPV 9.8 fL (7.4-11.0) 04/11/17 04:10 Neut % 68.8 % (42.0-75.0) 04/11/17 04:10 Lymph % 15.6 % (21.0-51.0) L 04/11/17 04:10 [place] % 11.2 % (0.0-13.0) 04/11/17 04:10 Eos % 3.7 % (0.9-2.9) H 04/11/17 04:10 Baso % 0.7 % (0.2-1.0) 04/11/17 04:10 Neut # 7.1 x10^3/uL (2.2-4.8) H 04/11/17 04:10 Lymph # 1.6 X10^3/uL (1.3-2.9) 04/11/17 04:10 [place] # 1.2 x10^3/uL (0.3-0.8) H 04/11/17 04:10 Eos # 0.4 x10^3/uL (0.0-0.2) H 04/11/17 04:10 Baso # 0.1 X10^3/uL (0.0-0.1) 04/11/17 04:10 Absolute Nucleated RBC 1.3 /100WBC 04/11/17 04:10 INR Target Range - 04/11/17 04:10 INR 2.93 (0.8-1.3) H 04/11/17 04:10 PTT 59.6 SECONDS (22.9-36.5) H 04/11/17 04:10 PTT Comment - 04/11/17 04:10 Sodium 138 mmol/L (136-145) 04/11/17 04:10 Corrected Sodium 141 mmol/L (136-145) 04/11/17 04:10 Potassium 4.3 mmol/L (3.5-5.1) 04/11/17 04:10 Chloride 105 mmol/L (98-107) 04/11/17 04:10 Carbon Dioxide 20.6 mmol/L (21-32) L 04/11/17 04:10 BUN 47 mg/dL (7-18) H 04/11/17 04:10 Creatinine 1.99 mg/dL (0.70-1.30) H 04/11/17 04:10 Est GFR (MDRD) Af Amer 43 (>60) L 04/11/17 04:10 Est GFR (MDRD) Non-Af 35 (>60) L 04/11/17 04:10 Glucose 206 mg/dL (65-99) H 04/11/17 04:10 POC Glucose (mg/dL) 203 mg/dL (65-99) H 04/11/17 05:30 Calcium 8.0 mg/dL (8.5-10.1) L 04/11/17 04:10 Corrected Calcium 9.9 mg/dL (8.5-10.1) 04/11/17 04:10 Magnesium 2.6 mg/dL (1.7-2.9) 04/08/17 15:31 Iron 50 ug/dL (50-175) 04/09/17 04:25 Transferrin 120 mg/dL (202-364) L 04/09/17 04:25 Ferritin 1754 ng/mL (26-388) H 04/09/17 04:25 Total Bilirubin 0.70 mg/dL (0.2-1.0) 04/11/17 04:10 AST 1382 Units/L (15-37) H 04/11/17 04:10 ALT 986 Units/L (12-78) H 04/11/17 04:10 Alkaline Phosphatase 355 Units/L (46-116) H 04/11/17 04:10 Creatine Kinase 123 Units/L (39-308) 04/08/17 15:31 CK-MB (CK-2) 1.6 ng/mL (0-4.0) 04/08/17 15:31 CK/CKMB % Calc 1.3 % (<4) 04/08/17 15:31 Troponin I 0.20 ng/mL (0-1.5) 04/08/17 15:31 Total Protein 7.0 g/dL (6.4-8.2) 04/11/17 04:10 Albumin 1.6 g/dL (3.4-5.0) L 04/11/17 04:10 Globulin 5.4 g/dL (2.5-4.5) H 04/11/17 04:10 Albumin/Globulin Ratio 0.3 Ratio (1.1-2.1) L 04/11/17 04:10 Triglycerides 32 mg/dL (0-150) 04/09/17 04:25 Cholesterol 78 mg/dL (0-200) 04/09/17 04:25 LDL Cholesterol, Calc 51 mg/dL (0-100) 04/09/17 04:25 HDL Cholesterol 21 mg/dL (40-60) L 04/09/17 04:25 Cholesterol/HDL Ratio 3.7 (0.0-5.0) 04/09/17 04:25 Vitamin B12 > 2000 pg/mL (193-986) H 04/09/17 04:25 Folate 20.0 ng/mL (>8.6) 04/09/17 04:25 - Plan (1) Bilateral pneumonia Status: Acute Qualifiers: Pneumonia type: due to unspecified organism Lung location: unspecified part of lung Qualified Code(s): J18.9 - Pneumonia, unspecified organism Plan: FORTAZ 2GM IV Q8H, RESPIRATORY TREATMENTS, SUPPLEMENTAL OXYGEN, ROBITUSSIM DM, CONTINUE TO MONITOR (2) Diabetic foot ulcer associated with type 2 diabetes mellitus Status: Acute Qualifiers: Diabetic foot ulcer location: toe Laterality: right Non-pressure ulcer stage: with necrosis of muscle Qualified Code(s): E11.621 - Type 2 diabetes mellitus with foot ulcer; L97.513 - Non-pressure chronic 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 same ATB and diabetic control. (3) Restless leg syndrome Status: Acute Plan: REQUIP 0.5MG PO HS, CONTINUE TO MONITOR
[2017-04-11] MEDS ORDERED: CHLORASEPTIC SPRAY MT PRN (10:59)
[2017-04-11] MEDS ORDERED: ANUCORT-HC SUPP PR PRN (10:59)
[2017-04-11] MEDS ORDERED: VITAMIN E PO SCH (11:00)
[2017-04-11] MEDS ORDERED: ASCORBIC ACID 1000 MG PO SCH (11:00)
[2017-04-11] MEDS: CLARITIN PO SCH (11:35)
[2017-04-11] MEDS: ELIQUIS PO SCH ×2 (11:35→20:42)
[2017-04-11] MEDS: COLACE CAP 100 MG PO SCH ×2 (11:35→20:42)
[2017-04-11] MEDS: TAB-A-VITE PO SCH (11:35)
[2017-04-11] MEDS: LIPITOR TAB 40 MG PO SCH (11:35)
[2017-04-11] MEDS: ZINC SULFATE PO SCH (11:35)
[2017-04-11] MEDS: ASPIRIN EC 81 MG PO SCH (11:36)
[2017-04-11] MEDS: HumuLIN R SC PRN ×3 (12:14→20:49)
[2017-04-11] MEDS: VOLTAREN 1 % GEL MULTI DOSE TUBE TOP SCH ×2 (15:04→21:14)
[2017-04-11] MEDS ORDERED: NS 1/2 1000 ML IV 1,000 ML IV ONE (17:01)
[2017-04-11] MEDS: VITAMIN C PO SCH (20:42)
[2017-04-11] MEDS: FLOMAX PO SCH (20:42)
[2017-04-11] MEDS: SINGULAIR TAB 10 MG PO SCH (20:42)
[2017-04-11] MEDS: REQUIP PO SCH (20:42)
[2017-04-11] MEDS: EFFEXOR TAB 75 MG (BID DOSING) PO SCH (20:42)
[2017-04-11] MEDS: MIRALAX POWDER (1 DOSE 17GM) PO SCH (20:42)
[2017-04-12] MEDS: DUONEB 0.5 MG/3 MG NEB SCH ×6 (01:33→20:36)
[2017-04-12] MEDS ORDERED: NS 1/2 1000 ML IV 1,000 ML IV ONE (05:00)
[2017-04-12 05:30] LABS: BASOPHILS # (AUTO) 0.1 X10^3/uL (0.0-0.1); BASOPHILS % (AUTO) 0.6 % (0.2-1.0); EOSINOPHILS # (AUTO) 0.6 x10^3/uL (0.0-0.2); EOSINOPHILS % (AUTO) 5.6 % (0.9-2.9); HEMATOCRIT 25.4 % (42.0-54.0); HEMOGLOBIN 8.4 g/dL (13.5-18.0); LYMPHOCYTES # (AUTO) 1.3 X10^3/uL (1.3-2.9); LYMPHOCYTES % (AUTO) 12.7 % (21.0-51.0); MEAN CORPUSCULAR HEMOGLOBIN 27.8 pg (27.0-34.0); MEAN CORPUSCULAR VOLUME 84.1 fL (80.0-100.0); MEAN PLATELET VOLUME 9.6 fL (7.4-11.0); MONOCYTES # (AUTO) 1.2 x10^3/uL (0.3-0.8); MONOCYTES % (AUTO) 12.5 % (0.0-13.0); NEUTROPHILS # (AUTO) 6.8 x10^3/uL (2.2-4.8); NEUTROPHILS % (AUTO) 68.6 % (42.0-75.0); PLATELET COUNT 107 X10^3/uL (150.0-450.0); RED BLOOD COUNT 3.02 X10^6/uL (4.7-6.0); RED CELL DISTRIBUTION WIDTH 19.7 % (11.6-16.5); WHITE BLOOD COUNT 9.9 X10^3/uL (3.6-10.0)
[2017-04-12] MEDS: FORTAZ or TAZICEF INJ 2 GM in NS 100 ML IV + SPIKE MINIBAG* 100 ML IV SCH ×3 (05:47→21:06)
[2017-04-12] MEDS: NS 1/2 1000 ML IV 1,000 ML IV SCH (05:47)
[2017-04-12 05:48] LABS: ANISOCYTOSIS SLIGHT; BAND NEUTROPHILS % 5 % (0-10); HYPOCHROMASIA 1+; PLATELET MORPHOLOGY COMMENT NORMAL (NORMAL); TARGET CELLS PRESENT
--- NOTE | 2017-04-12 05:49 | RAD ---
Examination: AP chest History: Bilateral pneumonia Comparison 04/11/2017 Findings: Stable heart size and unchanged position of pacing device. Bilateral airspace disease with slight interval increase in this process in the right lower lobe. No developing pleural fluid or pneu mothorax. Gaseous dilatation of the stomach. Impression: Slight interval increase in right lower lung pneumonia. Gastric distention. Reported By:
[2017-04-12 05:53] LABS: ALANINE AMINOTRANSFERASE 774 Units/L (12-78); ALBUMIN 2.2 g/dL (3.4-5.0); ALKALINE PHOSPHATASE 352 Units/L (46-116); ASPARTATE AMINO TRANSFERASE 838 Units/L (15-37); BLOOD UREA NITROGEN 39 mg/dL (7-18); CALCIUM 8.2 mg/dL (8.5-10.1); CARBON DIOXIDE 23.3 mmol/L (21-32); CHLORIDE 106 mmol/L (98-107); COR CA(FOR HYPOALB) 9.6 mg/dL (8.5-10.1); CREATININE 1.68 mg/dL (0.70-1.30); SODIUM 140 mmol/L (136-145); TOTAL PROTEIN 7.4 g/dL (6.4-8.2); eGFR BLACK RACES 52 (>60); eGFR NON BLACK RACES 43 (>60)
[2017-04-12] MEDS ORDERED: ZOFRAN INJ 4 MG VIAL IVP PRN (08:09)
[2017-04-12] MEDS: ALBUMIN HUMAN 25%- 100ML 200 ML IV SCH (08:24)
[2017-04-12] MEDS: PEPCID 20 MG IV PREMIX* 20 MG/50 ML BAG IV SCH ×2 (08:25→20:27)
[2017-04-12] MEDS: ROBITUSSIN DM PO SCH ×4 (08:25→20:29)
[2017-04-12] MEDS: CLARITIN PO SCH (09:37)
[2017-04-12] MEDS: COLACE CAP 100 MG PO SCH ×2 (09:37→20:29)
[2017-04-12] MEDS: ASPIRIN EC 81 MG PO SCH (09:37)
[2017-04-12] MEDS: ELIQUIS PO SCH ×2 (09:37→20:30)
[2017-04-12] MEDS: TAB-A-VITE PO SCH (09:38)
[2017-04-12] MEDS: LIPITOR TAB 40 MG PO SCH (09:38)
[2017-04-12] MEDS: VOLTAREN 1 % GEL MULTI DOSE TUBE TOP SCH ×2 (09:39→21:06)
[2017-04-12] MEDS: ZINC SULFATE PO SCH (09:39)
[2017-04-12] MEDS: VITAMIN C PO SCH ×2 (09:39→20:29)
--- NOTE | 2017-04-12 14:53 | CT ---
History: Abdominal pain and abnormal LFTs Study: CT abdomen and pelvis without contrast. Sagittal and coronal reformations were provided. Comparison: November 20, 2015 Findings: There are bilateral pleural effusions, moderate on the right and slightly smaller on the le ft with bibasilar subsegmental atelectasis or consolidation. There is mild ascites. There is a mildly lobular contour to the liver. The spleen is normal. The gallbladder surgically absent. There are few punctate calcifications in the pancreas which appears atrophic overall. The adrenal glands are unrem arkable. There are few punctate renal calcifications over. There is no hydronephrosis. There is no ad enopathy or aneurysm. There is no bowel distention or inflammation. There is moderate to severe L4-5 degenerative disc disease. Impression: 1. Mild ascites and moderate right and slightly smaller than left pleural effusions with bibasilar goldman bsegmental atelectasis or consolidation 2. Punctate bilateral renal calcifications without hydronephrosis Reported By:
--- NOTE | 2017-04-12 15:20 | US ---
HISTORY: Elevated LFTs and abdominal pain. Study: Right upper quadrant abdominal ultrasound Comparison: CT abdomen/pelvis dated same day. Technique: Multiple major scale and color flow Doppler images of the right upper quadrant were obtaine d. Findings: The liver is mildly enlarged to 16.0 cm with increased echogenicity consistent with diffuse fatty inf iltration. No focal intraparenchymal mass or intrahepatic biliary ductal dilatation can be observed. The gallbladder is surgically absent. The common bile duct is unremarkable measuring 3 mm. Mild/m oderate amount of abdominal ascites. The visualized portal vein, hepatic artery, and hepatic vein eric ear normal. IMPRESSION: 1. Hepatomegaly and hepatic steatosis. 2. Nonspecific mild/moderate amount of abdominal ascites. 3. The gallbladder is surgically absent. Reported By:
[2017-04-12] MEDS: MIRALAX POWDER (1 DOSE 17GM) PO SCH (20:29)
[2017-04-12] MEDS: REQUIP PO SCH (20:29)
[2017-04-12] MEDS: SINGULAIR TAB 10 MG PO SCH (20:29)
[2017-04-12] MEDS: FLOMAX PO SCH (20:30)
[2017-04-12] MEDS: EFFEXOR TAB 75 MG (BID DOSING) PO SCH (20:30)
[2017-04-13] MEDS: DUONEB 0.5 MG/3 MG NEB SCH ×6 (01:15→20:45)
[2017-04-13] MEDS ORDERED: NS 1/2 1000 ML IV 1,000 ML IV ONE (04:10)
[2017-04-13 05:29] LABS: BASOPHILS % (AUTO) 0.5 % (0.2-1.0); EOSINOPHILS # (AUTO) 0.4 x10^3/uL (0.0-0.2); EOSINOPHILS % (AUTO) 5.2 % (0.9-2.9); HEMATOCRIT 28.1 % (42.0-54.0); HEMOGLOBIN 9.2 g/dL (13.5-18.0); LYMPHOCYTES # (AUTO) 0.7 X10^3/uL (1.3-2.9); LYMPHOCYTES % (AUTO) 8.9 % (21.0-51.0); MEAN CORPUSCULAR HEMOGLOBIN 27.7 pg (27.0-34.0); MEAN CORPUSCULAR HGB CONC 32.6 g/dL (33.0-35.0); MEAN CORPUSCULAR VOLUME 84.9 fL (80.0-100.0); MEAN PLATELET VOLUME 9.8 fL (7.4-11.0); MONOCYTES # (AUTO) 0.8 x10^3/uL (0.3-0.8); MONOCYTES % (AUTO) 10.1 % (0.0-13.0); NEUTROPHILS # (AUTO) 5.8 x10^3/uL (2.2-4.8); NEUTROPHILS % (AUTO) 75.3 % (42.0-75.0); PLATELET COUNT 98 X10^3/uL (150.0-450.0); RED BLOOD COUNT 3.31 X10^6/uL (4.7-6.0); RED CELL DISTRIBUTION WIDTH 20.4 % (11.6-16.5); WHITE BLOOD COUNT 7.7 X10^3/uL (3.6-10.0)
[2017-04-13] MEDS: FORTAZ or TAZICEF INJ 2 GM in NS 100 ML IV + SPIKE MINIBAG* 100 ML IV SCH ×3 (05:31→21:06)
[2017-04-13] MEDS: NS 1/2 1000 ML IV 1,000 ML IV SCH ×2 (05:31→10:33)
[2017-04-13 05:41] LABS: ALBUMIN 2.2 g/dL (3.4-5.0); CALCIUM 8.3 mg/dL (8.5-10.1); CARBON DIOXIDE 21.4 mmol/L (21-32); COR CA(FOR HYPOALB) 9.7 mg/dL (8.5-10.1); CREATININE 1.67 mg/dL (0.70-1.30); TOTAL PROTEIN 7.4 g/dL (6.4-8.2)
[2017-04-13 05:43] LABS: ANISOCYTOSIS 1+; HYPOCHROMASIA 1+; PLATELET MORPHOLOGY COMMENT NORMAL (NORMAL)
--- NOTE | 2017-04-13 06:23 | RAD ---
HISTORY: Shortness of breath, follow-up pneumonia Study: Chest AP portable Comparison: April 12, 2017 Findings: There is a pacemaker present on the left obscuring a portion of the left mid lung. The patient is sta tus post median sternotomy. The heart is enlarged. No congestive heart failure is noted. The lungs ar e markedly hypo inflated. Right basilar lung infiltrate is unchanged. There is improved aeration of t he left lower lobe. The upper lung [place] to the extent visualized are clear. IMPRESSION: No significant change from the prior examination Reported By:
[2017-04-13] MEDS ORDERED: AQUA-MEPHYTON ADULT INJ SC ONE (09:21)
[2017-04-13] MEDS: ALBUMIN HUMAN 25%- 100ML 200 ML IV SCH (09:30)
[2017-04-13] MEDS: COLACE CAP 100 MG PO SCH ×2 (09:31→20:44)
[2017-04-13] MEDS: ELIQUIS PO SCH (09:31)
[2017-04-13] MEDS: CLARITIN PO SCH (09:31)
[2017-04-13] MEDS: ASPIRIN EC 81 MG PO SCH (09:31)
[2017-04-13] MEDS: VOLTAREN 1 % GEL MULTI DOSE TUBE TOP SCH ×2 (09:32→20:45)
[2017-04-13] MEDS: ZINC SULFATE PO SCH (09:32)
[2017-04-13] MEDS: VITAMIN C PO SCH ×2 (09:32→20:44)
[2017-04-13] MEDS: ROBITUSSIN DM PO SCH ×4 (09:32→20:44)
[2017-04-13] MEDS: PEPCID 20 MG IV PREMIX* 20 MG/50 ML BAG IV SCH ×2 (09:32→20:42)
[2017-04-13] MEDS: TAB-A-VITE PO SCH (09:32)
[2017-04-13] MEDS: LIPITOR TAB 40 MG PO SCH (09:32)
--- NOTE | 2017-04-13 11:37 | PCM.PROG ---
Progress Note - Progress Note for Day of Date: 04/12/17 - Subjective Subjective: IS BEING TREATED FOR BILATERAL PNEUMONIA. TODAY, HE IS ALERT AND ORIENTED, LYING IN BED ON MORNING ROUNDS. PATIENTS AND DAUGHTER ARE AT BEDSIDE. THEY REPORT THAT PATIENT HAS HAD SEVERE NAUSEA AND VOMITING THIS MONRING. ON EXAMINATION, HEART IS REGULAR IN RATE AND RHYTHM. BILATERAL LUNGS ARE NOTED WITH SCATTERED WHEEZING AND RHONCHI THROUGHOUT. ABDOMEN IS NOTED TO BE DISTENDED AND WITH MODERATE, DIFFUSE TENDERNESS. WEAKNESS NOTED TO ALL EXTREMITIES. MULTIPLE DIABETIC ULCERS WITH NO DRAINAGE NOTED TO BILATERAL FEET. HIS VITALS THIS MORNING ARE 97.8-92-18-100%-118/72. LABS WERE OBTAINED. ABNORMAL LAB VALUES INCLUDE THE FOLLOWING: RBC 3.02, HGB 8.4, HCT 25.4, PLT COUNT 107, POTASSIUM 3.4, BUN 39, CREATININE 1.68, GLUCOSE 63, CALCIUM 8.2, AST 838, ALT 774, ALK PHOS 352, ALBUMIN 2.2, GLOBULIN 5.2. TODAYS CHEST XRAY REPORTS SLIGHT INTERVAL INCREASE IN TRIGHT LOWER LUNG PNEUMONIA. GASTRIC DISTENTION. DUE TO ABDOMINAL PAIN AND DISTENTION, NAUSEA AND VOMITING, AND ELEVATED LIVER FUNCTION TEST, WE WILL ORDER A LIVER ULTRASOUND AND ABDOMEN CT WITHOUT CONTRAST. OTHERWISE, WE WILL CONTINUE WITH IV ANTIBIOTICS AND RESPIRATORY TREATMENTS FOR PNEUMONIA. WE WILL FOLLOW UP WITH AM LABS AND CONTINUE TO MONITOR PATIENT. - Past Medical Family Social History Past Med/Fam/Surg Hx: No changes since H&P Allergies: Allergies Iodine and Iodide Containing Produc Allergy (Mild, Verified 04/08/17 16:48) strawberry Allergy (Mild, Verified 04/08/17 16:48) gatifloxacin Allergy (Verified 04/08/17 16:48) shellfish derived Allergy (Verified 04/08/17 16:48) - Review of Systems ROS: No change since H&P - Vital Signs and I&O's Vital Signs: Temperature 97.5 F Pulse Rate [Left Brachial] 105 Pulse Rate 96 Respiratory Rate 18 Blood Pressure [Right Arm] 109/60 Blood Pressure [Left Arm] 101/67 Blood Pressure 116/73 O2 Sat by Pulse Oximetry 96 Intake and Output: Intake & Output 04/10/17 04/11/17 04/12/17 04/13/17 11:59 11:59 11:59 11:59 Intake Total 8995 2395 2004 2665 Output Total 200 400 300 Balance 2565 1994 1940 6278 - Physical Exam Oriented: Person Eyes: Normal Ear: Normal Nose: Normal Throat: Normal Respiratory: Generalized, Wheezes, Rhonchi Cardiovascular: Normal. negative: S3, S4, Murmur : Normal Auscultation: Bowel Sounds: Normal, Decreased Palpation: Normal Tenderness: Diffuse, Moderate Skin: Wound (DIABETIC ULCERS TO BILATERAL FEET ) Musculoskeletal: Right (diabetic ulcer Rt foot is the same with open open wound 2 x 2 cm with necrotic material in the depth of the incision ) Psychiatric: Normal Mood Description: Calm Affect: Normal Speech Pattern: Delayed - Laboratory and Diagnostics Result Diagrams: 04/13/17 04:25 04/13/17 04:25 Labs: 04/08/17 16:24 Blood Blood Culture - Preliminary Laboratory WBC 7.7 X10^3/uL (3.6-10.0) 04/13/17 04:25 RBC 3.31 X10^6/uL (4.7-6.0) L 04/13/17 04:25 Hgb 9.2 g/dL (13.5-18.0) L 04/13/17 04:25 Hct 28.1 % (42.0-54.0) L 04/13/17 04:25 MCV 84.9 fL (80.0-100.0) 04/13/17 04:25 MCH 27.7 pg (27.0-34.0) 04/13/17 04:25 MCHC 32.6 g/dL (33.0-35.0) L 04/13/17 04:25 RDW 20.4 % (11.6-16.5) H 04/13/17 04:25 Plt Count 98 X10^3/uL (150.0-450.0) L 04/13/17 04:25 Plt Count Comment Decreased (ADEQUATE) 04/13/17 04:25 MPV 9.8 fL (7.4-11.0) 04/13/17 04:25 Neut % 75.3 % (42.0-75.0) H 04/13/17 04:25 Lymph % 8.9 % (21.0-51.0) L 04/13/17 04:25 [place] % 10.1 % (0.0-13.0) 04/13/17 04:25 Eos % 5.2 % (0.9-2.9) H 04/13/17 04:25 Baso % 0.5 % (0.2-1.0) 04/13/17 04:25 Neut # 5.8 x10^3/uL (2.2-4.8) H 04/13/17 04:25 Lymph # 0.7 X10^3/uL (1.3-2.9) L 04/13/17 04:25 [place] # 0.8 x10^3/uL (0.3-0.8) 04/13/17 04:25 Eos # 0.4 x10^3/uL (0.0-0.2) H 04/13/17 04:25 Baso # 0.0 X10^3/uL (0.0-0.1) 04/13/17 04:25 Absolute Nucleated RBC 0.5 /100WBC 04/13/17 04:25 Total Counted 100 04/12/17 04:10 Neutrophils % (Manual) 69 % (39-76) 04/12/17 04:10 Band Neutrophils % 5 % (0-10) 04/12/17 04:10 Lymphocytes % (Manual) 10 % (13-43) L 04/12/17 04:10 Monocytes % (Manual) 12 % (4-9) H 04/12/17 04:10 Eosinophils % (Manual) 4 % (0-6) 04/12/17 04:10 Plt Morphology Comment Normal (NORMAL) 04/13/17 04:25 RBC Morphology Abnormal (NORMAL) 04/13/17 04:25 Hypochromasia 1+ A 04/13/17 04:25 Anisocytosis 1+ A 04/13/17 04:25 Target Cells Present 04/12/17 04:10 INR Target Range - 04/13/17 04:25 INR 4.20 (0.8-1.3) H 04/13/17 04:25 PTT 59.6 SECONDS (22.9-36.5) H 04/11/17 04:10 PTT Comment - 04/11/17 04:10 Sodium 139 mmol/L (136-145) 04/13/17 04:25 Corrected Sodium 141 mmol/L (136-145) 04/13/17 04:25 Potassium 3.9 mmol/L (3.5-5.1) 04/13/17 04:25 Chloride 105 mmol/L (98-107) 04/13/17 04:25 Carbon Dioxide 21.4 mmol/L (21-32) 04/13/17 04:25 BUN 34 mg/dL (7-18) H 04/13/17 04:25 Creatinine 1.67 mg/dL (0.70-1.30) H 04/13/17 04:25 Est GFR (MDRD) Af Amer 52 (>60) L 04/13/17 04:25 Est GFR (MDRD) Non-Af 43 (>60) L 04/13/17 04:25 Glucose 193 mg/dL (65-99) H 04/13/17 04:25 POC Glucose (mg/dL) 187 mg/dL (65-99) H 04/13/17 11:13 Calcium 8.3 mg/dL (8.5-10.1) L 04/13/17 04:25 Corrected Calcium 9.7 mg/dL (8.5-10.1) 04/13/17 04:25 Magnesium 2.6 mg/dL (1.7-2.9) 04/08/17 15:31 Iron 50 ug/dL (50-175) 04/09/17 04:25 Transferrin 120 mg/dL (202-364) L 04/09/17 04:25 Ferritin 1754 ng/mL (26-388) H 04/09/17 04:25 Total Bilirubin 1.10 mg/dL (0.2-1.0) H 04/13/17 04:25 AST 578 Units/L (15-37) H 04/13/17 04:25 ALT 614 Units/L (12-78) H 04/13/17 04:25 Alkaline Phosphatase 348 Units/L (46-116) H 04/13/17 04:25 Creatine Kinase 123 Units/L (39-308) 04/08/17 15:31 CK-MB (CK-2) 1.6 ng/mL (0-4.0) 04/08/17 15:31 CK/CKMB % Calc 1.3 % (<4) 04/08/17 15:31 Troponin I 0.20 ng/mL (0-1.5) 04/08/17 15:31 Total Protein 7.4 g/dL (6.4-8.2) 04/13/17 04:25 Albumin 2.2 g/dL (3.4-5.0) L 04/13/17 04:25 Globulin 5.2 g/dL (2.5-4.5) H 04/13/17 04:25 Albumin/Globulin Ratio 0.4 Ratio (1.1-2.1) L 04/13/17 04:25 Triglycerides 32 mg/dL (0-150) 04/09/17 04:25 Cholesterol 78 mg/dL (0-200) 04/09/17 04:25 LDL Cholesterol, Calc 51 mg/dL (0-100) 04/09/17 04:25 HDL Cholesterol 21 mg/dL (40-60) L 04/09/17 04:25 Cholesterol/HDL Ratio 3.7 (0.0-5.0) 04/09/17 04:25 Vitamin B12 > 2000 pg/mL (193-986) H 04/09/17 04:25 Folate 20.0 ng/mL (>8.6) 04/09/17 04:25 - Plan (1) Bilateral pneumonia Status: Acute Qualifiers: Pneumonia type: due to unspecified organism Lung location: unspecified part of lung Qualified Code(s): J18.9 - Pneumonia, unspecified organism Plan: FORTAZ 2GM IV Q8H, RESPIRATORY TREATMENTS, SUPPLEMENTAL OXYGEN, ROBITUSSIM DM, CONTINUE TO MONITOR (2) Diabetic foot ulcer associated with type 2 diabetes mellitus Status: Acute Qualifiers: Diabetic foot ulcer location: toe Laterality: right Non-pressure ulcer stage: with necrosis of muscle Qualified Code(s): E11.621 - Type 2 diabetes mellitus with foot ulcer; L97.513 - Non-pressure chronic 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 same ATB and diabetic control. (3) Restless leg syndrome Status: Acute Plan: REQUIP 0.5MG PO HS, CONTINUE TO MONITOR (4) Abdominal pain Status: Acute Qualifiers: Abdominal location: generalized Qualified Code(s): R10.84 - Generalized abdominal pain Plan: LIVER ULTRASOUND, ABDOMEN CT, CONTINUE TO MONITOR
[2017-04-13] MEDS ORDERED: MILK OF MAGNESIA PO PRN (19:57)
[2017-04-13] MEDS: REQUIP PO SCH (20:44)
[2017-04-13] MEDS: FLOMAX PO SCH (20:44)
[2017-04-13] MEDS: EFFEXOR TAB 75 MG (BID DOSING) PO SCH (20:44)
[2017-04-13] MEDS: SINGULAIR TAB 10 MG PO SCH (20:45)
[2017-04-13] MEDS: MIRALAX POWDER (1 DOSE 17GM) PO SCH (20:45)
[2017-04-14] MEDS ORDERED: NS 1/2 1000 ML IV 1,000 ML IV ONE ×2 (01:22→17:03)
[2017-04-14] MEDS: DUONEB 0.5 MG/3 MG NEB SCH ×6 (01:29→20:24)
[2017-04-14] MEDS: NS 1/2 1000 ML IV 1,000 ML IV SCH ×2 (02:26→18:11)
[2017-04-14] MEDS: FORTAZ or TAZICEF INJ 2 GM in NS 100 ML IV + SPIKE MINIBAG* 100 ML IV SCH ×3 (05:21→22:13)
[2017-04-14 06:08] LABS: BASOPHILS # (AUTO) 0.1 X10^3/uL (0.0-0.1); BASOPHILS % (AUTO) 0.8 % (0.2-1.0); EOSINOPHILS # (AUTO) 0.4 x10^3/uL (0.0-0.2); EOSINOPHILS % (AUTO) 5.4 % (0.9-2.9); HEMOGLOBIN 7.9 g/dL (13.5-18.0); LYMPHOCYTES # (AUTO) 0.8 X10^3/uL (1.3-2.9); LYMPHOCYTES % (AUTO) 11.6 % (21.0-51.0); MEAN CORPUSCULAR HEMOGLOBIN 27.8 pg (27.0-34.0); MEAN CORPUSCULAR HGB CONC 32.9 g/dL (33.0-35.0); MEAN CORPUSCULAR VOLUME 84.5 fL (80.0-100.0); MEAN PLATELET VOLUME 9.8 fL (7.4-11.0); MONOCYTES # (AUTO) 0.8 x10^3/uL (0.3-0.8); MONOCYTES % (AUTO) 11.6 % (0.0-13.0); NEUTROPHILS # (AUTO) 5.1 x10^3/uL (2.2-4.8); NEUTROPHILS % (AUTO) 70.6 % (42.0-75.0); PLATELET COUNT 82 X10^3/uL (150.0-450.0); RED BLOOD COUNT 2.85 X10^6/uL (4.7-6.0); RED CELL DISTRIBUTION WIDTH 19.8 % (11.6-16.5); WHITE BLOOD COUNT 7.2 X10^3/uL (3.6-10.0)
[2017-04-14 06:27] LABS: ALBUMIN 2.4 g/dL (3.4-5.0); ANISOCYTOSIS SLIGHT; CALCIUM 8.1 mg/dL (8.5-10.1); CARBON DIOXIDE 21.6 mmol/L (21-32); COR CA(FOR HYPOALB) 9.4 mg/dL (8.5-10.1); CREATININE 1.7 mg/dL (0.70-1.30); HYPOCHROMASIA SLIGHT; MICROCYTOSIS SLIGHT; PLATELET MORPHOLOGY COMMENT NORMAL (NORMAL); TOTAL PROTEIN 6.8 g/dL (6.4-8.2)
--- NOTE | 2017-04-14 08:23 | DR.H&P ---
H&P - History & Physical for Day of: H&P Date: 04/08/17 - Chief Complaint Chief Complaint: short of breath - Allergies Allergies/Adverse Reactions: Allergies Allergy/AdvReac Type Severity Reaction Status Date / Time Iodine and Iodide Containing Allergy Mild Verified 04/08/17 16:48 Produc strawberry Allergy Mild Verified 04/08/17 16:48 gatifloxacin Allergy Verified 04/08/17 16:48 shellfish derived Allergy Verified 04/08/17 16:48 - History of Present Illness History of Present Illness: is a 71 year old patient of ours who presented to the emergency room from [facility]. Staff and family report that patient was complaining of chest pain. Patient has a prior history of CVA and is unable to clearly articulate words. Patient placed on continuous state patrol officer with normal sinus rhythm noted. Heart rate in the 70s. Family reports that patient has been pale since yesterday. Patient placed on supplemental oxygen at 2LPM nasal cannula. Family reports that patient has been having some respiratory distress, with staff having to increase his oxygen requirement at the senior care. Medical History includes: cataracts, CVA, CHF, pacemaker, defibrillator, sleep apnea, GERD, kidney stones, muscle weakness, osteoarthritis, osteoporosis, diabetes, anemia, angioplasty/stents, CABG/valve surgery. On arrival, patient is noted to be short of breath on exertion and at rest. He is unable to lie flat due to shortness of breath. Patient is noted with a nonproductive, intermittent cough. Upon auscultation of lung [place]on, bilateral coarse lung sounds are noted. Abdomen is round, soft, and non-tender with normal bowel sounds noted in all quadrants. Bilateral lower extremities are noted with 2+ pitting edema. He has multiple diabetic ulcers to bilateral feet. On arrival, vitals were 96.2, 88, 20, 100%RA, 116/73. Labs were obtained and reported Abnormal Labs: WBC 13.8, RBC 3.52, Hgb 9.5, Hct 29.8, MCH 26.9, MCHC 31.8, RDW 19.0, Lymph% 14.6, Eos% 3.6, Nuet# 10.3, [place]# 0.9, Eos# 0.5, INR 2.72, PTT 53.2, Chloride 108, BUN 40, Creatinine 1.95, GFR(AA) 44, GFR(non) 36, Glucose 152, Corrected Calcium 10.2, AST 426, ALT 289, Alk Phos 247, Albumin 2.0, Globulin 6.1, A/G Ratio 0.3. Blood cultures x 2 are pending. Chest xray reports: Asymmetric pulmonary edema versus bilateral pneumonia. Brain CT obtained and reports: No intracranial process can be identified. Chronic periventricular white matter disease likely on the basis of small essel ischemic change. Age appropriate atrophic changes are seen. EKG reports: Ventricular paced complex. Heart rate=89. Patient admitted to the hospital for further treatment and evaluation. Patient will be started on pneumonia protocol. We will follow up with additional labs in the morning. 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 - Past Surgical History Surgical History: Angioplasty/Stents, CABG/Valve Surgery Additional Surgical History: Left Endaterectomy, Bilat Cataract Removal, Left Leg Graft, Left Graft on Face, Left Maxillary Bone Removed, Left Gum Bone Removed - Family History Family Medical History: Diabetes Mellitus, Cancer, ME, Sudden Cardiac , Hypertension - Social History Does patient currently use any type of tobacco product: No Have you used tobacco products in the last 12 months: No Type of Tobacco Use: None Does any household member use tobacco: No Alcohol Use: None - Medications Home Medications: Diclofenac Sodium (Topical) [Voltaren 1 % Gel Multi Dose Tube] 1 applic TOP BID 04/08/17 [History Confirmed 04/08/17] Hydrocortisone Supp 25 mg [ANUSOL-HC SUPP 25 MG *] 1 supp [place] PRN PRN 04/08/17 [ History Confirmed 04/08/17] Loratadine [Claritin] 1 tab PO DAILY 04/08/17 [History Confirmed 04/08/17] Polyethylene Glycol Pwd Ud [MIRALAX POWDER (17 GM DOSE) *] 17 grams PO HS [History Confirmed 04/08/17] Sore Throat [place] [CHLORASEPTIC SORE THROAT SPRAY *] 1 spray PO PRN PRN [History Confirmed 04/08/17] Tramadol HCl [ULTRAM 50 MG *] 1 tab PO PRN PRN 04/08/17 [History Confirmed 04/08] Vitamin E 1 tab PO DAILY 04/08/17 [History Confirmed 04/08/17] - Review of Systems Constitutional: Weakness, Malaise. denies: Fever Eyes: No Symptoms Reported. denies: See HPI, Pain, Vision Change, Conjunctivae Inflammation, Eyelid Inflammation, Redness, Other ENT: No Symptoms Reported. denies: See HPI, Ear Pain, Ear Discharge, Nose Pain , Nose Discharge, Nose Congestion, Mouth Pain, Mouth Swelling, Throat Pain, Throat Swelling, Other Respiratory: See HPI, Cough, Shortness of Breath, SOB with Excertion Cardiovascular: Chest Pain, Edema Gastrointestinal: No Symptoms Reported. denies: See HPI, Nausea, Vomiting, Abdominal Pain, Diarrhea, Constipation, Melena, Hematochezia, Other Genitourinary: No Symptoms Reported. denies: See HPI, Dysuria, Frequency, Incontinence, Hematuria, Retention, Other Musculoskeletal: No Symptoms Reported. denies: See HPI, Shoulder Pain, Arm Pain , Back Pain, Hand Pain, Leg Pain, Foot Pain, Neck Pain, Other Skin: Wound (bilateral feet noted with diabetic ulcers ) Neurological: Weakness - Physical Exam Vital Signs: Temperature 97.9 F Pulse Rate [Left Brachial] 103 Pulse Rate 105 Respiratory Rate 22 Blood Pressure [Right Arm] 90/55 Blood Pressure [Left Arm] 112/67 Blood Pressure 116/73 O2 Sat by Pulse Oximetry 97 Oriented: Person Eyes: Normal. negative: Blurred Vision, Diplopia, Discharge, Pain, Redness, Photophobia, Other Ear: Normal. negative: Right, Left, Swelling, Ecchymosis, Hemotypanum, Abrasion , Laceration Nose: Normal. negative: Injected, Discharge, Blood, Other Throat: Normal. negative: Tonsillar Hypertrophy, Red, Exudate, Dry, Other Respiratory: Diminished Throughout Cardiovascular: Normal. negative: S3, S4, Murmur : Normal. negative: Dysuria, Hematuria, Frequency, Discharge, Testicular Pain , Bleeding, , Other Auscultation: Bowel Sounds: Normal. negative: Bruit, Absent, Increased, Decreased, High Pitched, Other Palpation: Normal. negative: Spleen Enlarged, Liver Enlarged, Mass Pulsatile, Other Tenderness: Normal. negative: Rebound, Guarding, Rigidity Skin: Wound (diabetic ulcers to bilateral feet ) Musculoskeletal: Normal Psychiatric: Normal Mood Description: Calm Affect: Normal Speech Pattern: Unclear - Assessment/Plan (1) Bilateral pneumonia Qualifiers: Pneumonia type: due to unspecified organism Lung location: unspecified part of lung Qualified Code(s): J18.9 - Pneumonia, unspecified organism Status: Acute (2) Diabetic foot ulcer associated with type 2 diabetes mellitus Qualifiers: Diabetic foot ulcer location: toe Laterality: right Non-pressure ulcer stage: with necrosis of muscle Qualified Code(s): E11.621 - Type 2 diabetes mellitus with foot ulcer; L97.513 - Non-pressure chronic ulcer of other part of right foot with necrosis of muscle; L97.513 - Non-pressure chronic ulcer of other part of right foot with necrosis of muscle; L97.513 - Non-pressure chronic ulcer of other part of right foot with necrosis of muscle; L97.513 - Non -pressure chronic ulcer of other part of right foot with necrosis of muscle Status: Acute (3) Restless leg syndrome Status: Acute (4) Abdominal pain Qualifiers: Abdominal location: generalized Qualified Code(s): R10.84 - Generalized abdominal pain Status: Acute
[2017-04-14] MEDS ORDERED: AQUA-MEPHYTON ADULT INJ SC ONE (09:22)
[2017-04-14] MEDS: ROBITUSSIN DM PO SCH ×4 (09:43→21:05)
[2017-04-14] MEDS: TAB-A-VITE PO SCH (09:43)
[2017-04-14] MEDS: PEPCID 20 MG IV PREMIX* 20 MG/50 ML BAG IV SCH ×2 (09:43→20:43)
[2017-04-14] MEDS: LIPITOR TAB 40 MG PO SCH (09:43)
[2017-04-14] MEDS: COLACE CAP 100 MG PO SCH ×2 (09:44→20:44)
[2017-04-14] MEDS: VITAMIN C PO SCH ×2 (09:44→20:44)
[2017-04-14] MEDS: ZINC SULFATE PO SCH (09:44)
[2017-04-14] MEDS: ALBUMIN HUMAN 25%- 100ML 200 ML IV SCH (09:45)
[2017-04-14] MEDS: CLARITIN PO SCH (09:46)
[2017-04-14] MEDS: VOLTAREN 1 % GEL MULTI DOSE TUBE TOP SCH ×2 (09:48→20:47)
--- NOTE | 2017-04-14 10:14 | PCM.PROG ---
Progress Note - Progress Note for Day of Date: 04/13/17 - Subjective Subjective: IS BEING TREATED FOR BILATERAL PNEUMONIA. TODAY, HE IS LYING IN BED WITH EYES CLOSED ON MORNING ROUNDS. HE IS DIFFICULT TO AROUSE. FAMILY REPORTS THAT PATIENT HAS BEEN RESTLESS THROUGHOUT THE NIGHT. ON EXAMINATION, HEART IS REGULAR IN RATE AND RHYTHM. BILATERAL LUNGS ARE NOTED WITH SCATTERED WHEEZING AND RHONCHI THROUGHOUT. ABDOMEN IS NOTED TO BE DISTENDED AND WITH MODERATE, DIFFUSE TENDERNESS. WEAKNESS NOTED TO ALL EXTREMITIES. MULTIPLE DIABETIC ULCERS WITH NO DRAINAGE NOTED TO BILATERAL FEET. HIS VITALS THIS MORNING ARE 97.0-068-28-100%-102/60. LABS WERE OBTAINED. ABNORMAL LAB VALUES INCLUDE THE FOLLOWING: RBC 3.31, HGB 9.2, HCT 28.1, PLT COUNT 98, INR INCREASED FROM 2.93 TO 4.20, BUN 34, CREATININE 1.67, GLUCOSE 193 , CALCIUM 8.3, TOTAL BILI 1.10, AST 578, ALT 614, ALK PHOS 348, ALBUMIN 2.2, GLOBULIN 5.2. TODAYS CHEST XRAY REPORTS RIGHT BASILAR LUNG INFILTRATE UNCHANGED. THERE IS IMPROVED AERATION OF THE LEFT LOWER LOBE. A LIVER US WAS OBTAINED YESTERDAY AND REPORTED HEPATORMEGALY AND HEPATIC STEATOSIS. NONSPECIFIC MILD/MODERATE AMOUNT OF ABDOMINAL ASCITES. AN ABD/PELVIS CT WAS OBTAINED AND REPORTED MILD ASCITES AND MODERATE RIGHT AND SLIGHTLY SMALLER THAN LEFT PLEURAL EFFUSIONS WITH BIBASILAR SUBSEGMENTAL ATELECTASIS OR CONSOLIDATION. PUNCTATE BILATERAL RENAL CALCIFICATIONS WITHOUT HYDRONEPHROSIS. TODAY, WE WILL GIVE VITAMIN K 5MG SC X 1 DOSE AND RECHECK INR AT 5PM. WE WILL ALSO CONSULT GASTROENTEROLOGY. OTHERWISE, WE WILL CONTINUE WITH IV ANTIBIOTICS AND RESPIRATORY TREATMENTS FOR PNEUMONIA. WE WILL FOLLOW UP WITH AM LABS AND CONTINUE TO MONITOR PATIENT. - Past Medical Family Social History Past Med/Fam/Surg Hx: No changes since H&P Allergies: Allergies Iodine and Iodide Containing Produc Allergy (Mild, Verified 04/08/17 16:48) strawberry Allergy (Mild, Verified 04/08/17 16:48) gatifloxacin Allergy (Verified 04/08/17 16:48) shellfish derived Allergy (Verified 04/08/17 16:48) - Review of Systems ROS: No change since H&P - Vital Signs and I&O's Vital Signs: Temperature 97.5 F Pulse Rate [Left Brachial] 106 Pulse Rate 90 Respiratory Rate 20 Blood Pressure [Right Arm] 110/69 Blood Pressure [Left Arm] 112/67 Blood Pressure 116/73 O2 Sat by Pulse Oximetry 99 Intake and Output: Intake & Output 04/11/17 04/12/17 04/13/17 04/14/17 11:59 11:59 11:59 11:59 Intake Total 1175 2004 2665 1625 Output Total 400 300 600 Balance 1994 1705 2665 1025 - Physical Exam Oriented: Person Eyes: Normal. negative: Blurred Vision, Diplopia, Discharge, Pain, Redness, Photophobia, Other Ear: Normal. negative: Right, Left, Swelling, Ecchymosis, Hemotypanum, Abrasion , Laceration Nose: Normal. negative: Injected, Discharge, Blood, Other Throat: Normal. negative: Tonsillar Hypertrophy, Red, Exudate, Dry, Other Respiratory: Generalized, Wheezes, Rhonchi Cardiovascular: Normal. negative: S3, S4, Murmur : Normal. negative: Dysuria, Hematuria, Frequency, Discharge, Testicular Pain , Bleeding, , Other Auscultation: Bowel Sounds: Normal. negative: Bruit, Absent, Increased, Decreased, High Pitched, Other Palpation: Normal Tenderness: Diffuse, Moderate. negative: Rebound, Guarding, Rigidity Skin: Wound (diabetic ulcers to bilateral feet ) Musculoskeletal: Normal Psychiatric: Normal Mood Description: Calm Affect: Normal Speech Pattern: Unclear - Laboratory and Diagnostics Result Diagrams: 04/14/17 05:20 04/14/17 05:20 Labs: 04/08/17 16:24 Blood Blood Culture - Final Laboratory WBC 7.2 X10^3/uL (3.6-10.0) 04/14/17 05:20 RBC 2.85 X10^6/uL (4.7-6.0) L 04/14/17 05:20 Hgb 7.9 g/dL (13.5-18.0) L 04/14/17 05:20 Hct 24.0 % (42.0-54.0) L 04/14/17 05:20 MCV 84.5 fL (80.0-100.0) 04/14/17 05:20 MCH 27.8 pg (27.0-34.0) 04/14/17 05:20 MCHC 32.9 g/dL (33.0-35.0) L 04/14/17 05:20 RDW 19.8 % (11.6-16.5) H 04/14/17 05:20 Plt Count 82 X10^3/uL (150.0-450.0) L 04/14/17 05:20 Plt Count Comment Adequate (ADEQUATE) 04/14/17 05:20 MPV 9.8 fL (7.4-11.0) 04/14/17 05:20 Neut % 70.6 % (42.0-75.0) 04/14/17 05:20 Lymph % 11.6 % (21.0-51.0) L 04/14/17 05:20 [place] % 11.6 % (0.0-13.0) 04/14/17 05:20 Eos % 5.4 % (0.9-2.9) H 04/14/17 05:20 Baso % 0.8 % (0.2-1.0) 04/14/17 05:20 Neut # 5.1 x10^3/uL (2.2-4.8) H 04/14/17 05:20 Lymph # 0.8 X10^3/uL (1.3-2.9) L 04/14/17 05:20 [place] # 0.8 x10^3/uL (0.3-0.8) 04/14/17 05:20 Eos # 0.4 x10^3/uL (0.0-0.2) H 04/14/17 05:20 Baso # 0.1 X10^3/uL (0.0-0.1) 04/14/17 05:20 Absolute Nucleated RBC 0.3 /100WBC 04/14/17 05:20 Total Counted 100 04/14/17 05:20 Neutrophils % (Manual) 86 % (39-76) H 04/14/17 05:20 Band Neutrophils % 5 % (0-10) 04/12/17 04:10 Lymphocytes % (Manual) 3 % (13-43) L 04/14/17 05:20 Monocytes % (Manual) 8 % (4-9) 04/14/17 05:20 Eosinophils % (Manual) 3 % (0-6) 04/14/17 05:20 Plt Morphology Comment Normal (NORMAL) 04/14/17 05:20 RBC Morphology Abnormal (NORMAL) 04/14/17 05:20 Hypochromasia Slight A 04/14/17 05:20 Anisocytosis Slight A 04/14/17 05:20 Microcytosis Slight A 04/14/17 05:20 Target Cells Present 04/12/17 04:10 INR Target Range - 04/14/17 05:20 INR 3.81 (0.8-1.3) H 04/14/17 05:20 PTT 59.6 SECONDS (22.9-36.5) H 04/11/17 04:10 PTT Comment - 04/11/17 04:10 Sodium 139 mmol/L (136-145) 04/14/17 05:20 Corrected Sodium 142 mmol/L (136-145) 04/14/17 05:20 Potassium 3.8 mmol/L (3.5-5.1) 04/14/17 05:20 Chloride 106 mmol/L (98-107) 04/14/17 05:20 Carbon Dioxide 21.6 mmol/L (21-32) 04/14/17 05:20 BUN 31 mg/dL (7-18) H 04/14/17 05:20 Creatinine 1.70 mg/dL (0.70-1.30) H 04/14/17 05:20 Est GFR (MDRD) Af Amer 51 (>60) L 04/14/17 05:20 Est GFR (MDRD) Non-Af 42 (>60) L 04/14/17 05:20 Glucose 230 mg/dL (65-99) H 04/14/17 05:20 POC Glucose (mg/dL) 223 mg/dL (65-99) H 04/14/17 05:34 Calcium 8.1 mg/dL (8.5-10.1) L 04/14/17 05:20 Corrected Calcium 9.4 mg/dL (8.5-10.1) 04/14/17 05:20 Magnesium 2.6 mg/dL (1.7-2.9) 04/08/17 15:31 Iron 50 ug/dL (50-175) 04/09/17 04:25 Transferrin 120 mg/dL (202-364) L 04/09/17 04:25 Ferritin 1754 ng/mL (26-388) H 04/09/17 04:25 Total Bilirubin 1.30 mg/dL (0.2-1.0) H 04/14/17 05:20 AST 483 Units/L (15-37) H 04/14/17 05:20 ALT 500 Units/L (12-78) H 04/14/17 05:20 Alkaline Phosphatase 282 Units/L (46-116) H 04/14/17 05:20 Creatine Kinase 123 Units/L (39-308) 04/08/17 15:31 CK-MB (CK-2) 1.6 ng/mL (0-4.0) 04/08/17 15:31 CK/CKMB % Calc 1.3 % (<4) 04/08/17 15:31 Troponin I 0.20 ng/mL (0-1.5) 04/08/17 15:31 Total Protein 6.8 g/dL (6.4-8.2) 04/14/17 05:20 Albumin 2.4 g/dL (3.4-5.0) L 04/14/17 05:20 Globulin 4.4 g/dL (2.5-4.5) 04/14/17 05:20 Albumin/Globulin Ratio 0.5 Ratio (1.1-2.1) L 04/14/17 05:20 Triglycerides 32 mg/dL (0-150) 04/09/17 04:25 Cholesterol 78 mg/dL (0-200) 04/09/17 04:25 LDL Cholesterol, Calc 51 mg/dL (0-100) 04/09/17 04:25 HDL Cholesterol 21 mg/dL (40-60) L 04/09/17 04:25 Cholesterol/HDL Ratio 3.7 (0.0-5.0) 04/09/17 04:25 Vitamin B12 > 2000 pg/mL (193-986) H 04/09/17 04:25 Folate 20.0 ng/mL (>8.6) 04/09/17 04:25 - Plan (1) Bilateral pneumonia Status: Acute Qualifiers: Pneumonia type: due to unspecified organism Lung location: unspecified part of lung Qualified Code(s): J18.9 - Pneumonia, unspecified organism Plan: FORTAZ 2GM IV Q8H, RESPIRATORY TREATMENTS, SUPPLEMENTAL OXYGEN, ROBITUSSIM DM, CONTINUE TO MONITOR (2) Diabetic foot ulcer associated with type 2 diabetes mellitus Status: Acute Qualifiers: Diabetic foot ulcer location: toe Laterality: right Non-pressure ulcer stage: with necrosis of muscle Qualified Code(s): E11.621 - Type 2 diabetes mellitus with foot ulcer; L97.513 - Non-pressure chronic 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 same ATB and diabetic control. (3) Restless leg syndrome Status: Acute Plan: REQUIP 0.5MG PO HS, CONTINUE TO MONITOR (4) Abdominal pain Status: Acute Qualifiers: Abdominal location: generalized Qualified Code(s): R10.84 - Generalized abdominal pain Plan: CONSULT GI, CONTINUE TO MONITOR (5) Elevated INR Status: Acute Plan: VITAMIN K 5MG SC X 1 DOSE
[2017-04-14] MEDS: ZYVOX 600MG IV 600 MG/300 ML BAG IV SCH ×2 (11:44→20:41)
[2017-04-14] MEDS: LASIX IVP SCH ×2 (11:45→20:43)
[2017-04-14 12:06] LABS: BILIRUBIN,URINE NEGATIVE (NEGATIVE); BLOOD/HEMOGLOBIN,URINE 4+ (NEGATIVE); GLUCOSE, URINE NEGATIVE (NEGATIVE); KETONES,URINE 1+ (NEGATIVE); LEUKOCYTE ESTERASE ,URINE 1+ (NEGATIVE); NITRITES,URINE NEGATIVE (NEGATIVE); PROTEIN,URINE 3+ (NEGATIVE); UROBILINOGEN,URINE NORMAL (NORMAL)
[2017-04-14 12:23] LABS: APPEARANCE,URINE HAZY (CLEAR); COLOR,URINE YELLOW (YELLOW)
[2017-04-14 12:24] LABS: AMORPHOUS SEDIMENT,UR 2+ /HPF (NEGATIVE); BACTERIA,URINE TRACE /HPF (NEGATIVE); GRANULAR CASTS,URINE MANY /LPF (NEGATIVE); RENAL EPITHELIAL CELLS,URINE RARE /HPF (NEGATIVE); SQUAMOUS EPITHELIAL CELL,UR RARE /HPF (NEGATIVE)
[2017-04-14 12:25] LABS: MUCUS,URINE FEW /HPF (NEGATIVE)
[2017-04-14] MEDS: REQUIP PO SCH (20:43)
[2017-04-14] MEDS: FLOMAX PO SCH (20:43)
[2017-04-14] MEDS: SINGULAIR TAB 10 MG PO SCH (20:44)
[2017-04-14] MEDS: EFFEXOR TAB 75 MG (BID DOSING) PO SCH (20:44)
[2017-04-14] MEDS: MIRALAX POWDER (1 DOSE 17GM) PO SCH (21:04)
[2017-04-15] MEDS: DUONEB 0.5 MG/3 MG NEB SCH ×6 (00:21→20:38)
[2017-04-15] MEDS: NS 1/2 1000 ML IV 1,000 ML IV SCH ×2 (05:05→19:11)
[2017-04-15] MEDS: FORTAZ or TAZICEF INJ 2 GM in NS 100 ML IV + SPIKE MINIBAG* 100 ML IV SCH ×3 (05:31→21:54)
[2017-04-15 06:10] LABS: BASOPHILS % (AUTO) 0.6 % (0.2-1.0); EOSINOPHILS # (AUTO) 0.4 x10^3/uL (0.0-0.2); EOSINOPHILS % (AUTO) 5.1 % (0.9-2.9); HEMATOCRIT 23.9 % (42.0-54.0); LYMPHOCYTES # (AUTO) 0.8 X10^3/uL (1.3-2.9); LYMPHOCYTES % (AUTO) 10.5 % (21.0-51.0); MEAN CORPUSCULAR HEMOGLOBIN 28.2 pg (27.0-34.0); MEAN CORPUSCULAR HGB CONC 33.4 g/dL (33.0-35.0); MEAN CORPUSCULAR VOLUME 84.4 fL (80.0-100.0); MEAN PLATELET VOLUME 9.8 fL (7.4-11.0); MONOCYTES # (AUTO) 0.8 x10^3/uL (0.3-0.8); MONOCYTES % (AUTO) 10.5 % (0.0-13.0); NEUTROPHILS # (AUTO) 5.5 x10^3/uL (2.2-4.8); NEUTROPHILS % (AUTO) 73.3 % (42.0-75.0); PLATELET COUNT 83 X10^3/uL (150.0-450.0); RED BLOOD COUNT 2.83 X10^6/uL (4.7-6.0); RED CELL DISTRIBUTION WIDTH 20.7 % (11.6-16.5); WHITE BLOOD COUNT 7.5 X10^3/uL (3.6-10.0)
[2017-04-15 06:26] LABS: ALBUMIN 2.4 g/dL (3.4-5.0); CARBON DIOXIDE 22.7 mmol/L (21-32); COR CA(FOR HYPOALB) 9.3 mg/dL (8.5-10.1); CREATININE 1.82 mg/dL (0.70-1.30)
[2017-04-15 06:49] LABS: PLATELET MORPHOLOGY COMMENT NORMAL (NORMAL)
[2017-04-15 06:50] LABS: ANISOCYTOSIS 1+; CRENATED RBC 1+; HYPOCHROMASIA SLIGHT
[2017-04-15] MEDS: ALBUMIN HUMAN 25%- 100ML 200 ML IV SCH (08:50)
[2017-04-15] MEDS: ZYVOX 600MG IV 600 MG/300 ML BAG IV SCH ×2 (08:50→20:48)
[2017-04-15] MEDS: PEPCID 20 MG IV PREMIX* 20 MG/50 ML BAG IV SCH (08:51)
[2017-04-15] MEDS: LASIX IVP SCH ×2 (08:54→20:48)
[2017-04-15] MEDS: LIPITOR TAB 40 MG PO SCH (08:55)
[2017-04-15] MEDS: CLARITIN PO SCH (08:55)
[2017-04-15] MEDS: ZINC SULFATE PO SCH (08:55)
[2017-04-15] MEDS: COLACE CAP 100 MG PO SCH ×2 (08:56→20:47)
[2017-04-15] MEDS: TAB-A-VITE PO SCH (08:56)
[2017-04-15] MEDS: VITAMIN C PO SCH ×2 (08:56→20:48)
[2017-04-15] MEDS: ROBITUSSIN DM PO SCH ×4 (08:57→21:53)
[2017-04-15] MEDS: VOLTAREN 1 % GEL MULTI DOSE TUBE TOP SCH ×2 (08:57→21:54)
[2017-04-15] MEDS: HumuLIN R SC PRN (12:58)
[2017-04-15] MEDS ORDERED: NS 1/2 1000 ML IV 1,000 ML IV ONE (19:08)
[2017-04-15] MEDS: EFFEXOR TAB 75 MG (BID DOSING) PO SCH (20:47)
[2017-04-15] MEDS: SINGULAIR TAB 10 MG PO SCH (20:47)
[2017-04-15] MEDS: FLOMAX PO SCH (20:47)
[2017-04-15] MEDS: REQUIP PO SCH (20:47)
[2017-04-15] MEDS: MIRALAX POWDER (1 DOSE 17GM) PO SCH (21:53)
[2017-04-16] MEDS: DUONEB 0.5 MG/3 MG NEB SCH ×6 (00:58→20:04)
[2017-04-16] MEDS: FORTAZ or TAZICEF INJ 2 GM in NS 100 ML IV + SPIKE MINIBAG* 100 ML IV SCH ×2 (06:08→13:35)
[2017-04-16 06:13] LABS: BASOPHILS # (AUTO) 0.1 X10^3/uL (0.0-0.1); BASOPHILS % (AUTO) 0.8 % (0.2-1.0); EOSINOPHILS # (AUTO) 0.4 x10^3/uL (0.0-0.2); EOSINOPHILS % (AUTO) 4.2 % (0.9-2.9); HEMATOCRIT 22.7 % (42.0-54.0); HEMOGLOBIN 7.7 g/dL (13.5-18.0); LYMPHOCYTES # (AUTO) 1.2 X10^3/uL (1.3-2.9); LYMPHOCYTES % (AUTO) 13.5 % (21.0-51.0); MEAN CORPUSCULAR HEMOGLOBIN 28.5 pg (27.0-34.0); MEAN CORPUSCULAR HGB CONC 34.1 g/dL (33.0-35.0); MEAN CORPUSCULAR VOLUME 83.6 fL (80.0-100.0); MEAN PLATELET VOLUME 10.1 fL (7.4-11.0); MONOCYTES % (AUTO) 11.2 % (0.0-13.0); NEUTROPHILS # (AUTO) 6.3 x10^3/uL (2.2-4.8); NEUTROPHILS % (AUTO) 70.3 % (42.0-75.0); PLATELET COUNT 73 X10^3/uL (150.0-450.0); RED BLOOD COUNT 2.72 X10^6/uL (4.7-6.0); RED CELL DISTRIBUTION WIDTH 21.1 % (11.6-16.5)
[2017-04-16 06:25] LABS: ALBUMIN 2.6 g/dL (3.4-5.0); CALCIUM 8.2 mg/dL (8.5-10.1); CARBON DIOXIDE 23.3 mmol/L (21-32); COR CA(FOR HYPOALB) 9.3 mg/dL (8.5-10.1); CREATININE 2.19 mg/dL (0.70-1.30); TOTAL PROTEIN 7.1 g/dL (6.4-8.2)
[2017-04-16 06:48] LABS: PLATELET MORPHOLOGY COMMENT NORMAL (NORMAL)
[2017-04-16 06:49] LABS: ANISOCYTOSIS SLIGHT
[2017-04-16] MEDS: PEPCID 20 MG IV PREMIX* 20 MG/50 ML BAG IV SCH (08:42)
[2017-04-16] MEDS: ALBUMIN HUMAN 25%- 100ML 200 ML IV SCH (08:42)
[2017-04-16] MEDS: LASIX IVP SCH ×2 (08:42→20:30)
[2017-04-16] MEDS: ZYVOX 600MG IV 600 MG/300 ML BAG IV SCH ×2 (08:43→20:31)
[2017-04-16] MEDS: CLARITIN PO SCH (08:52)
[2017-04-16] MEDS: NS 1/2 1000 ML IV 1,000 ML IV SCH ×2 (08:52→13:36)
[2017-04-16] MEDS: ROBITUSSIN DM PO SCH ×4 (08:53→20:30)
[2017-04-16] MEDS: LIPITOR TAB 40 MG PO SCH (08:53)
[2017-04-16] MEDS: COLACE CAP 100 MG PO SCH ×2 (08:53→20:27)
[2017-04-16] MEDS: TAB-A-VITE PO SCH (08:54)
[2017-04-16] MEDS: VITAMIN C PO SCH ×2 (08:54→20:28)
[2017-04-16] MEDS: VOLTAREN 1 % GEL MULTI DOSE TUBE TOP SCH (08:54)
[2017-04-16] MEDS: ZINC SULFATE PO SCH (08:55)
[2017-04-16] MEDS ORDERED: MORPHINE SULFATE INJ 2 MG INJ ONE (09:22)
[2017-04-16] MEDS: MORPHINE SULFATE INJ 2 MG INJ IVP PRN (09:31)
[2017-04-16] MEDS ORDERED: NS 1/2 1000 ML IV 1,000 ML IV ONE (12:42)
[2017-04-16] MEDS: EFFEXOR TAB 75 MG (BID DOSING) PO SCH (20:27)
[2017-04-16] MEDS: FLOMAX PO SCH (20:27)
[2017-04-16] MEDS: MIRALAX POWDER (1 DOSE 17GM) PO SCH (20:28)
[2017-04-16] MEDS: REQUIP PO SCH (20:30)
[2017-04-17] MEDS: MORPHINE SULFATE INJ 2 MG INJ IVP PRN ×2 (03:59→21:04)
[2017-04-18] MEDS ORDERED: TRANSDERM-SCOP TD SCH (04:00)
[2017-04-18] MEDS: CHECK PATCH XX SCH (10:06)
--- NOTE | 2017-04-18 12:52 | PCM.PROG ---
Progress Note - Progress Note for Day of Date: 04/14/17 - Subjective Subjective: IS BEING TREATED FOR BILATERAL PNEUMONIA. TODAY, HE IS LYING IN BED WITH EYES CLOSED ON MORNING ROUNDS. HE CONTINUES TO BE LETHARGIC AND DIFFICULT TO AROUSE. ON EXAMINATION, HEART IS REGULAR IN RATE AND RHYTHM. BILATERAL LUNGS ARE CONTINUE WITH SCATTERED WHEEZING AND RHONCHI THROUGHOUT. ABDOMEN CONTINUES TO BE DISTENDED. WEAKNESS NOTED TO ALL EXTREMITIES. HIS VITALS THIS MORNING ARE 97.5-106-20-99%-110/69. LABS WERE OBTAINED. ABNORMAL LAB VALUES INCLUDE THE FOLLOWING: RBC 2.85, HGB 7.9, HCT 24.0, PLT COUNT 82, INR 3.81, BUN 31, CREATININE 1.70, GLUCOSE 230, CALCIUM 8.1, TOTAL BILI 1.30, AST 483, ALT 500, ALK PHOS 282. TODAY, WE WILL GIVE VITAMIN K 10MG SC X 1 DOSE, LASIX 40MG IV Q12H, AND INSERT A LEE CATHETER. CONSULTED WITH PATIENT THIS MORNING AND ORDERED ADDITIONAL LABS FOR A LIVER WORKUP. HE DID NOT RECOMMEND SCOPING PATIENT AT THIS TIME DUE TO ELEVATED INR. HE REPORTS CONCERNS FOR DIC. WE ARE IN AGREEMENT. OTHERWISE, WE WILL CONTINUE WITH IV ANTIBIOTICS AND RESPIRATORY TREATMENTS FOR PNEUMONIA TODAY. WE WILL FOLLOW UP WITH AM LABS AND CONTINUE TO MONITOR PATIENT. - Past Medical Family Social History Past Med/Fam/Surg Hx: No changes since H&P Allergies: Allergies Iodine and Iodide Containing Produc Allergy (Mild, Verified 04/08/17 16:48) strawberry Allergy (Mild, Verified 04/08/17 16:48) gatifloxacin Allergy (Verified 04/08/17 16:48) shellfish derived Allergy (Verified 04/08/17 16:48) - Review of Systems ROS: No change since H&P - Vital Signs and I&O's Vital Signs: Temperature 98 F Pulse Rate [Left Brachial] 105 Pulse Rate 98 Respiratory Rate 18 Blood Pressure [Right Arm] 86/61 Blood Pressure [Left Arm] 100/58 Blood Pressure 116/73 O2 Sat by Pulse Oximetry 95 Intake and Output: Intake & Output 04/16/17 04/17/17 04/18/17 04/19/17 11:59 11:59 11:59 11:59 Intake Total 1150 1590 50 Output Total 1850 350 0 Balance -700 1240 50 - Physical Exam Oriented: Unable to test Eyes: Normal. negative: Blurred Vision, Diplopia, Discharge, Pain, Redness, Photophobia, Other Ear: Normal. negative: Right, Left, Swelling, Ecchymosis, Hemotypanum, Abrasion , Laceration Nose: Normal. negative: Injected, Discharge, Blood, Other Throat: Normal. negative: Tonsillar Hypertrophy, Red, Exudate, Dry, Other Respiratory: Generalized, Wheezes, Rhonchi Cardiovascular: Normal. negative: S3, S4, Murmur : Normal. negative: Dysuria, Hematuria, Frequency, Discharge, Testicular Pain , Bleeding, , Other Auscultation: Bowel Sounds: Normal. negative: Bruit, Absent, Increased, Decreased, High Pitched, Other Palpation: Normal Tenderness: Other (ABDOMINAL DISTENTION) Skin: Wound (diabetic ulcers to bilateral feet ) Musculoskeletal: Normal Psychiatric: Other (LETHARGIC ) Speech Pattern: Aphasic - Laboratory and Diagnostics Result Diagrams: 04/16/17 05:58 04/16/17 05:58 Labs: 04/14/17 11:45 Urine,Catheterized Urine Culture - Final 04/08/17 16:24 Blood Blood Culture - Final Laboratory WBC 9.0 X10^3/uL (3.6-10.0) 04/16/17 05:58 RBC 2.72 X10^6/uL (4.7-6.0) L 04/16/17 05:58 Hgb 7.7 g/dL (13.5-18.0) L 04/16/17 05:58 Hct 22.7 % (42.0-54.0) L 04/16/17 05:58 MCV 83.6 fL (80.0-100.0) 04/16/17 05:58 MCH 28.5 pg (27.0-34.0) 04/16/17 05:58 MCHC 34.1 g/dL (33.0-35.0) 04/16/17 05:58 RDW 21.1 % (11.6-16.5) H 04/16/17 05:58 Plt Count 73 X10^3/uL (150.0-450.0) L 04/16/17 05:58 Plt Count Comment Adequate (ADEQUATE) 04/16/17 05:58 MPV 10.1 fL (7.4-11.0) 04/16/17 05:58 Neut % 70.3 % (42.0-75.0) 04/16/17 05:58 Lymph % 13.5 % (21.0-51.0) L 04/16/17 05:58 [place] % 11.2 % (0.0-13.0) 04/16/17 05:58 Eos % 4.2 % (0.9-2.9) H 04/16/17 05:58 Baso % 0.8 % (0.2-1.0) 04/16/17 05:58 Neut # 6.3 x10^3/uL (2.2-4.8) H 04/16/17 05:58 Lymph # 1.2 X10^3/uL (1.3-2.9) L 04/16/17 05:58 [place] # 1.0 x10^3/uL (0.3-0.8) H 04/16/17 05:58 Eos # 0.4 x10^3/uL (0.0-0.2) H 04/16/17 05:58 Baso # 0.1 X10^3/uL (0.0-0.1) 04/16/17 05:58 Absolute Nucleated RBC 0.3 /100WBC 04/16/17 05:58 Total Counted 100 04/16/17 05:58 Neutrophils % (Manual) 85 % (39-76) H 04/16/17 05:58 Band Neutrophils % 5 % (0-10) 04/12/17 04:10 Lymphocytes % (Manual) 13 % (13-43) 04/16/17 05:58 Monocytes % (Manual) 1 % (4-9) L 04/16/17 05:58 Eosinophils % (Manual) 1 % (0-6) 04/16/17 05:58 Plt Morphology Comment Normal (NORMAL) 04/16/17 05:58 RBC Morphology Abnormal (NORMAL) 04/16/17 05:58 Hypochromasia Slight A 04/15/17 04:25 Anisocytosis Slight A 04/16/17 05:58 Microcytosis Slight A 04/14/17 05:20 Target Cells Present 04/12/17 04:10 Crenated Cell 1+ A 04/15/17 04:25 INR Target Range - 04/16/17 05:58 INR 2.75 (0.8-1.3) H 04/16/17 05:58 PTT 59.6 SECONDS (22.9-36.5) H 04/11/17 04:10 PTT Comment - 04/11/17 04:10 Fibrinogen 170 mg/dL (239-489) L 04/14/17 12:00 Sodium 140 mmol/L (136-145) 04/16/17 05:58 Corrected Sodium 142 mmol/L (136-145) 04/16/17 05:58 Potassium 2.9 mmol/L (3.5-5.1) L* 04/16/17 05:58 Chloride 102 mmol/L (98-107) 04/16/17 05:58 Carbon Dioxide 23.3 mmol/L (21-32) 04/16/17 05:58 BUN 30 mg/dL (7-18) H 04/16/17 05:58 Creatinine 2.19 mg/dL (0.70-1.30) H 04/16/17 05:58 Est GFR (MDRD) Af Amer 38 (>60) L 04/16/17 05:58 Est GFR (MDRD) Non-Af 32 (>60) L 04/16/17 05:58 Glucose 187 mg/dL (65-99) H 04/16/17 05:58 POC Glucose (mg/dL) 253 mg/dL (65-99) H 04/16/17 20:16 Calcium 8.2 mg/dL (8.5-10.1) L 04/16/17 05:58 Corrected Calcium 9.3 mg/dL (8.5-10.1) 04/16/17 05:58 Magnesium 2.2 mg/dL (1.7-2.9) 04/15/17 04:25 Iron 50 ug/dL (50-175) 04/09/17 04:25 TIBC 83 ug/dL (250-450) L 04/14/17 12:00 Transferrin 120 mg/dL (202-364) L 04/09/17 04:25 Ferritin 1754 ng/mL (26-388) H 04/09/17 04:25 Total Bilirubin 2.00 mg/dL (0.2-1.0) H 04/16/17 05:58 AST 476 Units/L (15-37) H 04/16/17 05:58 ALT 448 Units/L (12-78) H 04/16/17 05:58 Alkaline Phosphatase 246 Units/L (46-116) H 04/16/17 05:58 Ammonia 24 umol/L (11-32) 04/14/17 09:40 Creatine Kinase 123 Units/L (39-308) 04/08/17 15:31 CK-MB (CK-2) 1.6 ng/mL (0-4.0) 04/08/17 15:31 CK/CKMB % Calc 1.3 % (<4) 04/08/17 15:31 Troponin I 0.20 ng/mL (0-1.5) 04/08/17 15:31 Total Protein 7.1 g/dL (6.4-8.2) 04/16/17 05:58 Albumin 2.6 g/dL (3.4-5.0) L 04/16/17 05:58 Globulin 4.5 g/dL (2.5-4.5) 04/16/17 05:58 Albumin/Globulin Ratio 0.6 Ratio (1.1-2.1) L 04/16/17 05:58 Triglycerides 32 mg/dL (0-150) 04/09/17 04:25 Cholesterol 78 mg/dL (0-200) 04/09/17 04:25 LDL Cholesterol, Calc 51 mg/dL (0-100) 04/09/17 04:25 HDL Cholesterol 21 mg/dL (40-60) L 04/09/17 04:25 Cholesterol/HDL Ratio 3.7 (0.0-5.0) 04/09/17 04:25 Vitamin B12 > 2000 pg/mL (193-986) H 04/09/17 04:25 Folate 20.0 ng/mL (>8.6) 04/09/17 04:25 Specimen Type Catherized urine 04/14/17 11:45 Urine Color Yellow (YELLOW) 04/14/17 11:45 Urine Appearance Hazy (CLEAR) 04/14/17 11:45 Urine pH 5.0 (5.0 - 8.0) 04/14/17 11:45 Ur Specific [place] 1.020 (1.000-1.030) 04/14/17 11:45 Urine Protein 3+ (NEGATIVE) 04/14/17 11:45 Urine Glucose (UA) Negative (NEGATIVE) 04/14/17 11:45 Urine Ketones 1+ (NEGATIVE) 04/14/17 11:45 Urine Occult Blood 4+ (NEGATIVE) 04/14/17 11:45 Urine Nitrite Negative (NEGATIVE) 04/14/17 11:45 Urine Bilirubin Negative (NEGATIVE) 04/14/17 11:45 Urine Urobilinogen Normal (NORMAL) 04/14/17 11:45 Ur Leukocyte Esterase 1+ (NEGATIVE) 04/14/17 11:45 Urine RBC 2-5 /HPF (NONE SEEN) 04/14/17 11:45 Urine WBC 3-5 /HPF (NONE SEEN) 04/14/17 11:45 Ur Squamous Epith Cells Rare /HPF (NEGATIVE) 04/14/17 11:45 Ur Renal Epithelial Cell Rare /HPF (NEGATIVE) 04/14/17 11:45 Amorphous Sediment 2+ /HPF (NEGATIVE) 04/14/17 11:45 Urine Bacteria Trace /HPF (NEGATIVE) 04/14/17 11:45 Granular Casts Many /LPF (NEGATIVE) 04/14/17 11:45 Urine Mucus Few /HPF (NEGATIVE) 04/14/17 11:45 Ur Culture Indicated? Yes/culture set up 04/14/17 11:45 - Plan (1) Bilateral pneumonia Status: Acute Qualifiers: Pneumonia type: due to unspecified organism Lung location: unspecified part of lung Qualified Code(s): J18.9 - Pneumonia, unspecified organism Plan: FORTAZ 2GM IV Q8H, RESPIRATORY TREATMENTS, SUPPLEMENTAL OXYGEN, ROBITUSSIM DM, CONTINUE TO MONITOR (2) Diabetic foot ulcer associated with type 2 diabetes mellitus Status: Acute Qualifiers: Diabetic foot ulcer location: toe Laterality: right Non-pressure ulcer stage: with necrosis of muscle Qualified Code(s): E11.621 - Type 2 diabetes mellitus with foot ulcer; L97.513 - Non-pressure chronic 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 same ATB and diabetic control. (3) Restless leg syndrome Status: Acute Plan: REQUIP 0.5MG PO HS, CONTINUE TO MONITOR (4) Abdominal pain Status: Acute Qualifiers: Abdominal location: generalized Qualified Code(s): R10.84 - Generalized abdominal pain Plan: LIVER WORKUP BY , CONTINUE TO MONITOR (5) Elevated INR Status: Acute Plan: VITAMIN K 10MG SC X 1 DOSE (6) Ascites Status: Acute Qualifiers: Ascites type: other type Qualified Code(s): R18.8 - Other ascites Plan: LASIX 40MG IV Q12H, LEE CATHETER, CONTINUE TO MONITOR
--- NOTE | 2017-04-18 14:32 | PCM.PROG ---
Progress Note - Progress Note for Day of Date: 04/18/17 - Subjective Subjective: IS BEING TREATED FOR BILATERAL PNEUMONIA, ELEVATED LIVER ENZYMES, AND ABDOMINAL ASCITES. TODAY, HE CONTINUES TO BE LETHARGIC AND DIFFICULT TO AROUSE. FAMILY IS AT BEDSIDE. ON EXAMINATION, HEART IS REGULAR IN RATE AND RHYTHM. BILATERAL LUNGS ARE CONTINUE WITH SCATTERED WHEEZING AND RHONCHI THROUGHOUT. ABDOMEN CONTINUES TO BE DISTENDED. HIS VITALS THIS MORNING ARE 98.0-105-18-95%-100/58. FAMILY REFUSED FOR LABS TO BE OBTAINED THIS MORNING. WE DISCUSSED PATIENTS DECLINING CONDITION WITH FAMILY. FAMILY WISHES THAT WE DISCONTINUE ALL TREATMENTS AND PO MEDICATIONS AT THIS TIME. THEY WISH FOR US TO KEEP PATIENT COMFORTABLE. ON TUESDAY, WE DISCUSSED DISCHARGE TO HOME WITH HOSPICE, HOWEVER, FAMILY NOW WISHES TO REMAIN IN THE HOSPITAL FOR PALLATIVE CARE. WE ARE IN AGREEMENT WITH THEIR WISHES. TODAY, WE WILL START DURAGESIC MCG/HR PATCH. OTHERWISE, WE WILL CONTINUE WITH MORPHINE 1-2MG IV Q4H PRN AND SCOPOLAMINE PATCHE Q72HR. WE WILL CONTINUE TO MONITOR PATIENT. - Past Medical Family Social History Past Med/Fam/Surg Hx: No changes since H&P Allergies: Allergies Iodine and Iodide Containing Produc Allergy (Mild, Verified 04/08/17 16:48) strawberry Allergy (Mild, Verified 04/08/17 16:48) gatifloxacin Allergy (Verified 04/08/17 16:48) shellfish derived Allergy (Verified 04/08/17 16:48) - Review of Systems ROS: No change since H&P - Vital Signs and I&O's Vital Signs: Temperature 98 F Pulse Rate [Left Brachial] 105 Pulse Rate 98 Respiratory Rate 18 Blood Pressure [Right Arm] 86/61 Blood Pressure [Left Arm] 100/58 Blood Pressure 116/73 O2 Sat by Pulse Oximetry 95 Intake and Output: Intake & Output 04/16/17 04/17/17 04/18/17 04/19/17 11:59 11:59 11:59 11:59 Intake Total 1150 1590 50 Output Total 1850 350 0 Balance -700 1240 50 - Physical Exam Oriented: Unable to test Eyes: Normal. negative: Blurred Vision, Diplopia, Discharge, Pain, Redness, Photophobia, Other Ear: Normal. negative: Right, Left, Swelling, Ecchymosis, Hemotypanum, Abrasion , Laceration Nose: Normal. negative: Injected, Discharge, Blood, Other Throat: Normal. negative: Tonsillar Hypertrophy, Red, Exudate, Dry, Other Respiratory: Generalized, Wheezes, Rhonchi Cardiovascular: Normal. negative: S3, S4, Murmur : Normal. negative: Dysuria, Hematuria, Frequency, Discharge, Testicular Pain , Bleeding, , Other Auscultation: Bowel Sounds: Normal. negative: Bruit, Absent, Increased, Decreased, High Pitched, Other Tenderness: Other (ABDOMINAL DISTENTION) Skin: Wound (diabetic ulcers to bilateral feet ) Musculoskeletal: Normal Psychiatric: Other (LETHARGIC ) Mood Description: Calm Affect: Normal Speech Pattern: Aphasic - Laboratory and Diagnostics Result Diagrams: 04/16/17 05:58 04/16/17 05:58 Labs: 04/14/17 11:45 Urine,Catheterized Urine Culture - Final 04/08/17 16:24 Blood Blood Culture - Final Laboratory WBC 9.0 X10^3/uL (3.6-10.0) 04/16/17 05:58 RBC 2.72 X10^6/uL (4.7-6.0) L 04/16/17 05:58 Hgb 7.7 g/dL (13.5-18.0) L 04/16/17 05:58 Hct 22.7 % (42.0-54.0) L 04/16/17 05:58 MCV 83.6 fL (80.0-100.0) 04/16/17 05:58 MCH 28.5 pg (27.0-34.0) 04/16/17 05:58 MCHC 34.1 g/dL (33.0-35.0) 04/16/17 05:58 RDW 21.1 % (11.6-16.5) H 04/16/17 05:58 Plt Count 73 X10^3/uL (150.0-450.0) L 04/16/17 05:58 Plt Count Comment Adequate (ADEQUATE) 04/16/17 05:58 MPV 10.1 fL (7.4-11.0) 04/16/17 05:58 Neut % 70.3 % (42.0-75.0) 04/16/17 05:58 Lymph % 13.5 % (21.0-51.0) L 04/16/17 05:58 [place] % 11.2 % (0.0-13.0) 04/16/17 05:58 Eos % 4.2 % (0.9-2.9) H 04/16/17 05:58 Baso % 0.8 % (0.2-1.0) 04/16/17 05:58 Neut # 6.3 x10^3/uL (2.2-4.8) H 04/16/17 05:58 Lymph # 1.2 X10^3/uL (1.3-2.9) L 04/16/17 05:58 [place] # 1.0 x10^3/uL (0.3-0.8) H 04/16/17 05:58 Eos # 0.4 x10^3/uL (0.0-0.2) H 04/16/17 05:58 Baso # 0.1 X10^3/uL (0.0-0.1) 04/16/17 05:58 Absolute Nucleated RBC 0.3 /100WBC 04/16/17 05:58 Total Counted 100 04/16/17 05:58 Neutrophils % (Manual) 85 % (39-76) H 04/16/17 05:58 Band Neutrophils % 5 % (0-10) 04/12/17 04:10 Lymphocytes % (Manual) 13 % (13-43) 04/16/17 05:58 Monocytes % (Manual) 1 % (4-9) L 04/16/17 05:58 Eosinophils % (Manual) 1 % (0-6) 04/16/17 05:58 Plt Morphology Comment Normal (NORMAL) 04/16/17 05:58 RBC Morphology Abnormal (NORMAL) 04/16/17 05:58 Hypochromasia Slight A 04/15/17 04:25 Anisocytosis Slight A 04/16/17 05:58 Microcytosis Slight A 04/14/17 05:20 Target Cells Present 04/12/17 04:10 Crenated Cell 1+ A 04/15/17 04:25 INR Target Range - 04/16/17 05:58 INR 2.75 (0.8-1.3) H 04/16/17 05:58 PTT 59.6 SECONDS (22.9-36.5) H 04/11/17 04:10 PTT Comment - 04/11/17 04:10 Fibrinogen 170 mg/dL (239-489) L 04/14/17 12:00 Sodium 140 mmol/L (136-145) 04/16/17 05:58 Corrected Sodium 142 mmol/L (136-145) 04/16/17 05:58 Potassium 2.9 mmol/L (3.5-5.1) L* 04/16/17 05:58 Chloride 102 mmol/L (98-107) 04/16/17 05:58 Carbon Dioxide 23.3 mmol/L (21-32) 04/16/17 05:58 BUN 30 mg/dL (7-18) H 04/16/17 05:58 Creatinine 2.19 mg/dL (0.70-1.30) H 04/16/17 05:58 Est GFR (MDRD) Af Amer 38 (>60) L 04/16/17 05:58 Est GFR (MDRD) Non-Af 32 (>60) L 04/16/17 05:58 Glucose 187 mg/dL (65-99) H 04/16/17 05:58 POC Glucose (mg/dL) 253 mg/dL (65-99) H 04/16/17 20:16 Calcium 8.2 mg/dL (8.5-10.1) L 04/16/17 05:58 Corrected Calcium 9.3 mg/dL (8.5-10.1) 04/16/17 05:58 Magnesium 2.2 mg/dL (1.7-2.9) 04/15/17 04:25 Iron 50 ug/dL (50-175) 04/09/17 04:25 TIBC 83 ug/dL (250-450) L 04/14/17 12:00 Transferrin 120 mg/dL (202-364) L 04/09/17 04:25 Ferritin 1754 ng/mL (26-388) H 04/09/17 04:25 Total Bilirubin 2.00 mg/dL (0.2-1.0) H 04/16/17 05:58 AST 476 Units/L (15-37) H 04/16/17 05:58 ALT 448 Units/L (12-78) H 04/16/17 05:58 Alkaline Phosphatase 246 Units/L (46-116) H 04/16/17 05:58 Ammonia 24 umol/L (11-32) 04/14/17 09:40 Creatine Kinase 123 Units/L (39-308) 04/08/17 15:31 CK-MB (CK-2) 1.6 ng/mL (0-4.0) 04/08/17 15:31 CK/CKMB % Calc 1.3 % (<4) 04/08/17 15:31 Troponin I 0.20 ng/mL (0-1.5) 04/08/17 15:31 Total Protein 7.1 g/dL (6.4-8.2) 04/16/17 05:58 Albumin 2.6 g/dL (3.4-5.0) L 04/16/17 05:58 Globulin 4.5 g/dL (2.5-4.5) 04/16/17 05:58 Albumin/Globulin Ratio 0.6 Ratio (1.1-2.1) L 04/16/17 05:58 Triglycerides 32 mg/dL (0-150) 04/09/17 04:25 Cholesterol 78 mg/dL (0-200) 04/09/17 04:25 LDL Cholesterol, Calc 51 mg/dL (0-100) 04/09/17 04:25 HDL Cholesterol 21 mg/dL (40-60) L 04/09/17 04:25 Cholesterol/HDL Ratio 3.7 (0.0-5.0) 04/09/17 04:25 Vitamin B12 > 2000 pg/mL (193-986) H 04/09/17 04:25 Folate 20.0 ng/mL (>8.6) 04/09/17 04:25 Specimen Type Catherized urine 04/14/17 11:45 Urine Color Yellow (YELLOW) 04/14/17 11:45 Urine Appearance Hazy (CLEAR) 04/14/17 11:45 Urine pH 5.0 (5.0 - 8.0) 04/14/17 11:45 Ur Specific [place] 1.020 (1.000-1.030) 04/14/17 11:45 Urine Protein 3+ (NEGATIVE) 04/14/17 11:45 Urine Glucose (UA) Negative (NEGATIVE) 04/14/17 11:45 Urine Ketones 1+ (NEGATIVE) 04/14/17 11:45 Urine Occult Blood 4+ (NEGATIVE) 04/14/17 11:45 Urine Nitrite Negative (NEGATIVE) 04/14/17 11:45 Urine Bilirubin Negative (NEGATIVE) 04/14/17 11:45 Urine Urobilinogen Normal (NORMAL) 04/14/17 11:45 Ur Leukocyte Esterase 1+ (NEGATIVE) 04/14/17 11:45 Urine RBC 2-5 /HPF (NONE SEEN) 04/14/17 11:45 Urine WBC 3-5 /HPF (NONE SEEN) 04/14/17 11:45 Ur Squamous Epith Cells Rare /HPF (NEGATIVE) 04/14/17 11:45 Ur Renal Epithelial Cell Rare /HPF (NEGATIVE) 04/14/17 11:45 Amorphous Sediment 2+ /HPF (NEGATIVE) 04/14/17 11:45 Urine Bacteria Trace /HPF (NEGATIVE) 04/14/17 11:45 Granular Casts Many /LPF (NEGATIVE) 04/14/17 11:45 Urine Mucus Few /HPF (NEGATIVE) 04/14/17 11:45 Ur Culture Indicated? Yes/culture set up 04/14/17 11:45 - Plan (1) Bilateral pneumonia Status: Acute Qualifiers: Pneumonia type: due to unspecified organism Lung location: unspecified part of lung Qualified Code(s): J18.9 - Pneumonia, unspecified organism Plan: FORTAZ 2GM IV Q8H, RESPIRATORY TREATMENTS, SUPPLEMENTAL OXYGEN, ROBITUSSIM DM, CONTINUE TO MONITOR (2) Diabetic foot ulcer associated with type 2 diabetes mellitus Status: Acute Qualifiers: Diabetic foot ulcer location: toe Laterality: right Non-pressure ulcer stage: with necrosis of muscle Qualified Code(s): E11.621 - Type 2 diabetes mellitus with foot ulcer; L97.513 - Non-pressure chronic 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 same ATB and diabetic control. (3) Restless leg syndrome Status: Acute Plan: REQUIP 0.5MG PO HS, CONTINUE TO MONITOR (4) Abdominal pain Status: Acute Qualifiers: Abdominal location: generalized Qualified Code(s): R10.84 - Generalized abdominal pain Plan: LIVER WORKUP BY , CONTINUE TO MONITOR (5) Elevated INR Status: Acute Plan: VITAMIN K 10MG SC X 1 DOSE (6) Ascites Status: Acute Qualifiers: Ascites type: other type Qualified Code(s): R18.8 - Other ascites Plan: LASIX 40MG IV Q12H, LEE CATHETER, CONTINUE TO MONITOR
[2017-04-19] MEDS: CHECK PATCH XX SCH ×3 (00:38→23:15)
[2017-04-19] MEDS ORDERED: DURAGESIC 100 mcg/HR PATCH TD SCH (10:00)
[2017-04-19 11:26] VITALS: BP 84/46
[2017-04-19] MEDS ORDERED: VERSED 100 MG in NS 100 ML IV 80 ML IV PRN (19:16)
[2017-04-19] MEDS ORDERED: MORPHINE SULFATE PCA 30 MG IVP PRN (19:21)
[2017-04-19] MEDS ORDERED: VERSED ONE (19:27)
[2017-04-19] MEDS ORDERED: NS 100 ML IV 100 ML IV ONE (19:27)
[2017-04-19 21:56] LABS: HEPATITIS A ANTIBODY IGM Negative (Negative)
[2017-04-20 07:42] LABS: HEPATITIS B CORE IGM Negative (Negative); HEPATITIS B SURFACE ANTIGEN Negative (Negative)
[2017-04-20 07:43] LABS: ANTI-NUCLEAR ANTIBODY TEST Detected (None Detected)
[2017-04-25 07:09] LABS: ANA PATTERN SPECKLED PATTERN
== END 2017-04-19 23:00 | disposition expired | DRG 195 ==
LOC: ER 15:06 → MED/SURG 16:54
PROVIDERS: ADMIT Internal Medicine; ATTEND Internal Medicine
DX: J18.8 Other pneumonia, unspecified organism (principal); R06.03 Acute respiratory distress; I25.10 Atherosclerotic heart disease of native coronary artery without angina pectoris; F32.89 Other specified depressive episodes; E11.65 Type 2 diabetes mellitus with hyperglycemia; K21.9 Gastro-esophageal reflux disease without esophagitis; I10 Essential (primary) hypertension; R94.31 Abnormal electrocardiogram [ECG] [EKG]; R06.02 Shortness of breath; R60.1 Generalized edema; E11.621 Type 2 diabetes mellitus with foot ulcer; L97.513 Non-pressure chronic ulcer of other part of right foot with necrosis of muscle; R10.84 Generalized abdominal pain; G25.81 Restless legs syndrome; I46.9 Cardiac arrest, cause unspecified; R26.89 Other abnormalities of gait and mobility; Z98.890 Other specified postprocedural states; Z86.73 Personal history of transient ischemic attack (TIA), and cerebral infarction without residual deficits; I69.328 Other speech and language deficits following cerebral infarction
CPT/HCPCS: 36415; 70450; 71045; 74176; 76705; 80053; 80061; 80074; 81001; 82140; 82550; 82553; 82607; 82728; 82746; 83540; 83550; 83735; 84466; 84484; 85025; 85384; 85610; 85730; 86256; 86308; 87040; 87086; 93005; 93010; 94640; 96365; 96374; 97535; 99284; A4217; A4222; P9047; S0028; J0713; J0885; J1815; J1940; J1956; J2020; J2250; J2270; J2271; J2405; J3430; J7620